=== PATIENT | female | born 1945 | race American Indian/Alaskan Native ===

== ENCOUNTER 2016-06-19 14:57 | Emergency (ER) | payer MEDICARE, BC ==
[2016-06-19 14:57] VITALS: BMI 30.9
--- NOTE | 2016-06-19 16:06 | ED PDOC ---
Arrival/HPI - General Chief Complaint: ENT Problem Time Seen by Provider: 06/19/16 15:11 Historian: Patient - History of Present Illness Narrative History of Present Illness (Text): 06/19/16 19:09 Patient with past medical history of hypertension, reports acute onset of R sided atraumatic nosebleed today, which subsided upon arrival to the emergency room, reports no active bleeding at this time. Otherwise: (-) hematuria, (-) GI bleeding, (-) other bleeding (-) prior history of posterior nosebleeds. Of note, patient states that she occasionally misses a dose of her blood pressure medication, however this week she's been compliant with it. Denies any headache , chest pain, palpitations or shortness of breath. PMD [place] Past Medical History - Provider Review Nursing Documentation Reviewed: Yes - Cardiac Hx Hypertension: Yes Hx Pacemaker: No - Neurological Hx Paralysis: No - Hematological/Oncological Hx Blood Transfusions: No Hx Blood Transfusion Reaction: No - Musculoskeletal/Rheumatological Hx Musculoskeletal Disorders: No (OSTEOPENIA) - Genitourinary/Gynecological Hx Genitourinary Disorders: No - Psychiatric Hx Emotional Abuse: No Hx Physical Abuse: No Hx Substance Use: No - Anesthesia Hx Anesthesia Reactions: No Hx Malignant Hyperthermia: No - Suicidal Assessment Feels Threatened In Home Enviroment: No Family/Social History - Physician Review Nursing Documentation Reviewed: Yes Family/Social History: No Known Family HX Smoking Status: Never Smoked Hx Alcohol Use: Yes (ON OCCASION) Hx Substance Use: No Allergies/Home Meds Allergies/Adverse Reactions: Allergies shellfish derived Adverse Reaction (Verified 06/18/15 08:12) VOMITING Home Medications: Home Meds Medication Instructions Recorded Confirmed Calcium Carbonate [Calcium] 500 mg PO BID 06/17/15 06/19/16 Cholecalciferol (Vitamin D3) 5,000 unit PO DAILY 06/17/15 06/19/16 [Vitamin D] Losartan/Hydrochlorothiazide 1 tab PO DAILY 06/17/15 06/18/15 [Hyzaar 25 mg-100 mg] Review of Systems - Review of Systems Constitutional: Normal. absent: Fatigue, Weight Change ENT: Normal, Epistaxis. absent: Hearing Changes, Tinnitus Respiratory: Normal. absent: SOB, Cough Cardiovascular: Normal. absent: Chest Pain, Palpitations Skin: Normal. absent: Rash, Skin Lesions Neurological: Normal. absent: Headache, Dizziness Physical Exam - Physical Exam Narrative Physical Exam (Text): 06/19/16 19:11 GENERAL APPEARANCE: Patient is awake, alert, oriented x 3, in no acute distress. No active bleeding noted. SKIN: Warm, dry; (-) petechiae, (-) ecchymosis. EYES: (-) conjunctival pallor, (-) icterus. ENMT: Nose: Speculum exam: (+) bleeding site identified to the R anterior nasal septum with no active bleeding. Pharynx: Clear. Airway patent: (-) stridor. NECK: (-) tenderness, (-) stiffness, (-) lymphadenopathy. CHEST AND RESPIRATORY: (-) rales, (-) rhonchi, (-) wheezes; breath sounds equal bilaterally. HEART AND CARDIOVASCULAR: (-) irregularity; (-) murmur, (-) gallop. Vital Signs Temp Pulse Resp BP Pulse Ox 06/19/16 16:10 66 16 99 06/19/16 16:06 98.0 F 66 16 146/80 98 06/19/16 15:17 97.9 F 68 18 99 06/19/16 14:59 97.9 F 68 18 167/80 H 99 Medical Decision Making ED Course and Treatment: 06/19/16 16:04 71 F with h/o HTN, presents with epistaxis to the R nare with no active bleeding at this time. Repeat P 66 BP 146/80. Patient instructed on the importance of being compliant with hypertension medication. Patient instructed on what to do if the bleeding recurs again. Patient advised to return to the emergency room at any time if symptoms persist. Based on history and exam, plan will be for outpatient follow-up with PMD. Patient states she fully agrees with and understands discharge instructions. States that she agrees with the plan and disposition. Verbalized and repeated discharge instructions and plan. I have given the patient opportunity to ask any additional questions. Follow up with primary care physician in 1-2 days without fail. Return to the emergency room at any time for any new or worsening symptoms. 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 Disposition/Present on Arrival - Present on Arrival Any Indicators Present on Arrival: No History of DVT/PE: No History of Uncontrolled Diabetes: No Urinary Catheter: No History of Decub. Ulcer: No History Surgical Site Infection Following: None - Disposition Have Diagnosis and Disposition been Completed?: Yes Diagnosis: Epistaxis Disposition: HOME/ ROUTINE Disposition Time: 15:50 Patient Plan: Discharge Condition: GOOD Discharge Instructions (ExitCare): Nosebleed (ED) Print Language: ARMENIAN Additional Instructions: Thank you for letting us take care of you today. You were treated for epistaxis. The emergency medical care you received today was directed at your acute symptoms. Return to the Emergency Department if your symptoms worsen, do not improve, or if you have any other problems. Please contact your doctor in 2 days for re-evaluation and follow up. Bring any paperwork you were given at discharge with you along with any medications you are taking to your follow up visit. Our treatment cannot replace ongoing medical care by a primary care provider (PCP) outside of the emergency department. Thank you for allowing the [facility] team to be part of your care today. Referrals: Abigail Hendricks MD [Primary Care Provider] - Follow up with primary
[2016-06-19 16:07] VITALS: BP 146/80; PULSE 66; RESP 16; TEMP 98
[2016-06-19 16:10] VITALS: O2SAT 99
== END 2016-06-19 16:10 | disposition home or self-care (01) ==
LOC: ED 14:57
DX: R04.0 Epistaxis (principal)

== ENCOUNTER 2016-06-19 21:52 | Emergency (ER) | payer MEDICARE, BC ==
--- NOTE | 2016-06-19 22:15 | ED PDOC ---
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 Patient stated she was seen in this ED earlier today for same epistaxis. Patient stated during last ED visit, epistaxis had improved. Patient stated she went home. She sneezed causing to get a nose bleed again. Patient is not taking blood thinners, or ASA. Patient denies trauma, dizziness , PEDROZA, diplopia, sick contact, or abnormal gait. Time/Duration: Prior to Arrival Context: Home Past Medical History - Provider Review Nursing Documentation Reviewed: Yes - Cardiac Hx Hypertension: Yes Hx Pacemaker: No - Neurological Hx Paralysis: No - Hematological/Oncological Hx Blood Transfusions: No Hx Blood Transfusion Reaction: No - Musculoskeletal/Rheumatological Hx Musculoskeletal Disorders: No (OSTEOPENIA) - Genitourinary/Gynecological Hx Genitourinary Disorders: No - Psychiatric Hx Emotional Abuse: No Hx Physical Abuse: No Hx Substance Use: No - Anesthesia Hx Anesthesia Reactions: No Hx Malignant Hyperthermia: No - Suicidal Assessment Feels Threatened In Home Enviroment: No Family/Social History - Physician Review Nursing Documentation Reviewed: Yes Family/Social History: No Known Family HX Smoking Status: Never Smoked Hx Alcohol Use: Yes (ON OCCASION) Hx Substance Use: No Allergies/Home Meds Allergies/Adverse Reactions: Allergies shellfish derived Adverse Reaction (Verified 06/18/15 08:12) VOMITING Home Medications: Home Meds Medication Instructions Recorded Confirmed Calcium Carbonate [Calcium] 500 mg PO BID 06/17/15 06/19/16 Cholecalciferol (Vitamin D3) 5,000 unit PO DAILY 06/17/15 06/19/16 [Vitamin D] Losartan/Hydrochlorothiazide 1 tab PO DAILY 06/17/15 06/18/15 [Hyzaar 25 mg-100 mg] Review of Systems - Review of Systems Constitutional: Normal. absent: Fatigue, Weight Change Eyes: Normal ENT: Epistaxis Respiratory: Normal Cardiovascular: Normal Gastrointestinal: Normal Genitourinary Female: Normal Musculoskeletal: Normal Skin: Normal Neurological: Normal Endocrine: Normal Hemo/Lymphatic: Normal Psychiatric: Normal Physical Exam Vital Signs Temp Pulse Resp BP Pulse Ox 06/20/16 00:44 16 98 06/20/16 00:43 62 16 153/86 H 99 06/19/16 22:55 98.0 F 62 18 99 Temperature: Afebrile Blood Pressure: Normal Pulse: Regular Respiratory Rate: Normal Appearance: Positive for: Well-Appearing, Non-Toxic, Comfortable Pain Distress: None Mental Status: Positive for: Alert and Oriented X 3 - Systems Exam Head: Present: Atraumatic, Normocephalic Pupils: Present: PERRL Extroacular Muscles: Present: EOMI Conjunctiva: Present: Normal Mouth: Present: Moist Mucous Membranes Pharnyx: Present: Normal. No: ERYTHEMA, EXUDATE, TONSILS ENLARGED Nose (External): Present: Atraumatic Nose (Internal): Present: No Active Bleeding, Other ((+) there is a trace of epistaxis on right anterior nostril. No active nose bleeding) Neck: Present: Normal Range of Motion Respiratory/Chest: Present: Clear to Auscultation, Good Air Exchange. No: Respiratory Distress, Accessory Muscle Use Cardiovascular: Present: Regular Rate and Rhythm, Normal S1, S2. No: Murmurs Abdomen: Present: Normal Bowel Sounds. No: Tenderness, Distention, Peritoneal Signs Back: Present: Normal Inspection Upper Extremity: Present: Normal Inspection. No: Cyanosis, Edema Lower Extremity: Present: Normal Inspection. No: Edema Neurological: Present: GCS=15, CN II-XII Intact, Speech Normal Skin: Present: Warm, Dry, Normal Color. No: Rashes Psychiatric: Present: Alert, Oriented x 3 Medical Decision Making ED Course and Treatment: 06/20/16 00:16 Re-evaluation. Patient feels better. Discussed results and plan with patient who expresses understanding. All questions answered and there is agreement with the plan to discharge home with instructions. Patient stable for discharge. Return if symptoms persist or worsen. Patient was monitor in the ED for return of epistaxis for over 2 hours Re-evaluation Time: 00:16 Reassessment Condition: Re-examined, Improved - Medication Orders Current Medication Orders: Discontinued Medications Silver Nitrate (Silver Nitrate Topical Stick) 1 swa TOP ONCE ONE Stop: 06/19/16 22:17 - Procedure PROCEDURE NOTE (Text): 06/20/16 00:17 Epistaxis has improved. Silver Nitrate topwas used to cauterized anterior right nostril point of bleeding. Patient tolerated procedure well. Disposition/Present on Arrival - Present on Arrival Any Indicators Present on Arrival: No History of DVT/PE: No History of Uncontrolled Diabetes: No Urinary Catheter: No History Surgical Site Infection Following: None - Disposition Have Diagnosis and Disposition been Completed?: Yes Diagnosis: Epistaxis Disposition: HOME/ ROUTINE Disposition Time: 00:18 Patient Plan: Discharge Condition: IMPROVED Discharge Instructions (ExitCare): Nosebleed (ED) Additional Instructions: Call ENT doctor for follow up visit and revaluation on Wednesday. Also call private doctor for blood pressure recheck. Make sure to take medication for blood pressure. Do not blow nose, open mouth when you sneeze, no not removed debris from nose. Return to emergency if nose bleed restart. Referrals: Abigail Hendricks MD [Primary Care Provider] - Follow up with primary Jayesh Ramos DO [Staff Provider] - Follow up with primary
[2016-06-19] MEDS ORDERED: Silver Nitrate Topical - Stick TOP ONE (22:16)
[2016-06-19 22:22] VITALS: BMI 29.6
[2016-06-19 22:55] VITALS: PULSE 62; TEMP 98
[2016-06-20 00:43] VITALS: BP 153/86; RESP 16
[2016-06-20 00:45] VITALS: O2SAT 98
== END 2016-06-20 00:45 | disposition home or self-care (01) ==
LOC: ED 21:52
DX: R04.0 Epistaxis (principal)

== ENCOUNTER 2017-04-22 21:32 | Emergency (ER) | payer MEDICARE, BC ==
[2017-04-22 21:32] VITALS: BMI 29.6
[2017-04-22 21:44] VITALS: RESP 18; TEMP 98.4
--- NOTE | 2017-04-22 22:09 | ED PDOC ---
Arrival/HPI - General Chief Complaint: ENT Problem Time Seen by Provider: 04/22/17 21:40 Historian: Patient - History of Present Illness Narrative History of Present Illness (Text): 04/22/17 22:05 A 72 year old female, whose past medical history includes hypertension, presents to the emergency department complaining of epistaxis since 7PM today. She states that she sneezed this evening and began to bleed from her right nostril which would not stop bleeding, which prompted her to come into the emergency department. The patient's epistaxis is currently improved. The patient also notes that at baseline blood pressure is high.The patient denies fevers, chills, headache, dizziness, chest pain, shortness of breath, dyspnea on exertion, cough, abdominal pain, nausea, vomiting, diarrhea, back pain, neck pain, urinary/bowel changes, or any other complaint. PMD: Dr. Jad Hendricks Time/Duration: Other (7 PM Today) Symptom Onset: Sudden Symptom Course: Unchanged Activities at Onset: Rest, Light Context: Home Past Medical History - Provider Review Nursing Documentation Reviewed: Yes - Cardiac Hx Hypertension: Yes Hx Pacemaker: No - Neurological Hx Paralysis: No - Hematological/Oncological Hx Blood Transfusions: No Hx Blood Transfusion Reaction: No - Musculoskeletal/Rheumatological Hx Musculoskeletal Disorders: No (OSTEOPENIA) - Genitourinary/Gynecological Hx Genitourinary Disorders: No - Psychiatric Hx Emotional Abuse: No Hx Physical Abuse: No Hx Substance Use: No - Anesthesia Hx Anesthesia Reactions: No Hx Malignant Hyperthermia: No - Suicidal Assessment Feels Threatened In Home Enviroment: No Family/Social History - Physician Review Nursing Documentation Reviewed: Yes Family/Social History: No Known Family HX Smoking Status: Never Smoked Hx Alcohol Use: Yes (ON OCCASION) Hx Substance Use: No Allergies/Home Meds Allergies/Adverse Reactions: Allergies shellfish derived Adverse Reaction (Verified 06/18/15 08:12) VOMITING Home Medications: Home Meds Medication Instructions Recorded Confirmed Calcium Carbonate [Calcium] 500 mg PO BID 06/17/15 06/19/16 Cholecalciferol (Vitamin D3) 5,000 unit PO DAILY 06/17/15 06/19/16 [Vitamin D] Losartan/Hydrochlorothiazide 1 tab PO DAILY 06/17/15 06/18/15 [Hyzaar 25 mg-100 mg] Review of Systems - Physician Review All systems were reviewed & negative as marked: Yes - Review of Systems Constitutional: absent: Fevers ENT: Epistaxis (Sudden onset at 7PM. Currently not bleeding. ) Respiratory: absent: SOB Cardiovascular: absent: Chest Pain, SELF Gastrointestinal: absent: Abdominal Pain, Stool Changes, Diarrhea, Nausea, Vomiting Genitourinary Female: absent: Urine Output Changes Musculoskeletal: absent: Back Pain, Neck Pain Neurological: absent: Headache, Dizziness Physical Exam Vital Signs Reviewed: Yes Vital Signs Temp Pulse Resp BP Pulse Ox 04/22/17 23:02 72 18 123/69 98 04/22/17 21:42 98.4 F 77 18 152/88 H 99 Temperature: Afebrile Blood Pressure: Hypertensive Pulse: Regular Respiratory Rate: Normal Appearance: Positive for: Well-Appearing, Non-Toxic, Comfortable Pain Distress: None Mental Status: Positive for: Alert and Oriented X 3 - Systems Exam Head: Present: Atraumatic, Normocephalic Pupils: Present: PERRL Extroacular Muscles: Present: EOMI Conjunctiva: Present: Normal Mouth: Present: Moist Mucous Membranes Nose (Internal): Present: Epistaxis (Blood in right nare. No longer bleeding. ) Neck: Present: Normal Range of Motion Respiratory/Chest: Present: Clear to Auscultation, Good Air Exchange. No: Respiratory Distress, Accessory Muscle Use Cardiovascular: Present: Regular Rate and Rhythm, Normal S1, S2. No: Murmurs Abdomen: Present: Normal Bowel Sounds. No: Tenderness, Distention, Peritoneal Signs Back: Present: Normal Inspection Upper Extremity: Present: Normal Inspection. No: Cyanosis, Edema Lower Extremity: Present: Normal Inspection. No: Edema Neurological: Present: GCS=15, CN II-XII Intact, Speech Normal Skin: Present: Warm, Dry, Normal Color. No: Rashes Psychiatric: Present: Alert, Oriented x 3, Normal Insight, Normal Concentration Medical Decision Making ED Course and Treatment: 04/22/17 22:11 Impression: A 72 year old female presents to the emergency department complaining of sudden onset epistaxis this evening from the right nostril. Plan: -- Labs -- Reassess and disposition Prior Visits: Notes and results from previous visits were reviewed. Patient was last seen in the emergency department on 06/19/16. The patient was seen in the emergency department for a complaint of right nostril epistaxis. The patient was discharged home. Progress Notes: EKG: Ordered, reviewed, and independently interpreted the EKG. Rate : 71 BPM Rhythm : NSR 04/22/17 23:25: Patient is not actively bleeding; no need to cauterize. All of patient's labs are normal. Patient's blood pressure is currently 120/63. - Lab Interpretations Lab Results: 04/22/17 22:30 04/22/17 22:30 Lab Results 04/22/17 22:30: Sodium 143, Potassium 3.8, Chloride 103, Carbon Dioxide 28, Anion Gap 16, BUN 24 H, Creatinine 1.1, Est GFR ( Amer) 59, Est GFR (Non- Af Amer) 49, Random Glucose 119 H, Calcium 9.6, Total Bilirubin 0.4, AST 21, ALT 23, Alkaline Phosphatase 85, Lactate Dehydrogenase 438, Total Creatine Kinase 57, Troponin I < 0.01, Total Protein 7.5, Albumin 3.8, Globulin 3.7, Albumin/Globulin Ratio 1.0 L 04/22/17 22:30: PT 12.0, INR 1.05 04/22/17 22:30: WBC 7.9, RBC 3.68, Hgb 11.4 L, Hct 33.8 L, MCV 91.8, MCH 31.0, MCHC 33.7, RDW 13.3, Plt Count 213, MPV 11.1 H, Gran % 61.7, Lymph % (Auto) 29.9 , [place] % (Auto) 6.6 H, Eos % (Auto) 1.5, Baso % (Auto) 0.3, Gran # 4.90, Lymph # (Auto) 2.4, [place] # (Auto) 0.5, Eos # (Auto) 0.1, Baso # (Auto) 0.02 I have reviewed the lab results: Yes - 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 - Scribe Statement The provider has reviewed the documentation as recorded by the Robbie Coles Provider Scribe Attestation: All medical record entries made by the Scribe were at my direction and personally dictated by me. I have reviewed the chart and agree that the record accurately reflects my personal performance of the history, physical exam, medical decision making, and the department course for this patient. I have also personally directed, reviewed, and agree with the discharge instructions and disposition. Disposition/Present on Arrival - Present on Arrival Any Indicators Present on Arrival: No History of DVT/PE: No History of Uncontrolled Diabetes: No Urinary Catheter: No History of Decub. Ulcer: No History Surgical Site Infection Following: None - Disposition Have Diagnosis and Disposition been Completed?: Yes Diagnosis: Epistaxis Disposition: HOME/ ROUTINE Disposition Time: 23:13 Patient Plan: Discharge Condition: GOOD Discharge Instructions (ExitCare): Nosebleed (ED) Additional Instructions: Mrs Allen- I am sorry this happened to you tonight. Nothing hot to eat or drink for the next few days. Vaporizer or Humidifier in your bedroom. Antibiotic ointment in the nose if you need to moisten it. Return to us if problems. See your doctor next week. [place]- Dr. Sandeep Gonzalez Referrals: Abigail Hendricks MD [Primary Care Provider] - Follow up with primary Forms: [employer] (Mongolian)
[2017-04-22 22:54] LABS: BASO # 0.02 K/mm3 (0.0-2.0); BASO % 0.3 % (0.0-3.0); EOS # 0.1 (0.0-0.7); EOS % 1.5 % (1.5-5.0); GRAN # 4.9 (1.4-6.5); GRAN % 61.7 % (50.0-68.0); HEMOGLOBIN 11.4 g/dL (12.0-16.0); LYMPH # 2.4 (1.2-3.4); LYMPH % 29.9 % (22.0-35.0); MEAN CELL VOLUME 91.8 fl (80.0-105.0); MEAN CORPUSCULAR HGB CONC 33.7 g/dl (31.0-37.0); MEAN PLATELET VOLUME 11.1 fl (7.0-11.0); MONO # 0.5 (0.1-0.6); MONO % 6.6 % (1.0-6.0); RBC 3.68 10^6/uL (3.5-6.1); RED CELL DISTRIBUTION WIDTH 13.3 % (11.5-14.5); WHITE BLOOD COUNT 7.9 10^3/ul (4.5-11.0)
[2017-04-22 22:57] LABS: ALBUMIN 3.8 g/dL (3.0-4.8); ALT/SGPT 23 U/L (7-56); AST/SGOT 21 U/L (14-36); BLOOD UREA NITROGEN 24 mg/dL (7-21); CALCIUM 9.6 mg/dL (8.4-10.5); GFR AFRICAN-AMERICAN 59; GFR NON-AFRICAN AMERICAN 49
[2017-04-22 22:58] LABS: INR 1.05 (0.93-1.08)
[2017-04-22 23:03] VITALS: BP 123/69; PULSE 72; O2SAT 98
[2017-04-22 23:09] LABS: TROPONIN I < 0.01 ng/mL
--- NOTE | 2017-04-26 16:06 | CARD ---
APPROVED REPORT EKG Measurement Heart [id number] CO [id number] <Conclusion> Normal sinus rhythm Normal ECG
== END 2017-04-22 23:28 | disposition home or self-care (01) ==
LOC: ED 21:32
DX: R04.0 Epistaxis (principal); I10 Essential (primary) hypertension

== ENCOUNTER 2017-05-09 20:21 | Observation (INO) | payer MEDICARE, BC ==
[2017-05-09 20:33] VITALS: BMI 31.5
--- NOTE | 2017-05-09 21:17 | ED PDOC ---
Arrival/HPI - General Chief Complaint: Dizziness/Lightheaded Time Seen by Provider: 05/09/17 20:29 Historian: Patient - History of Present Illness Narrative History of Present Illness (Text): 05/09/17 20:50 Raina Allen is a 72 year old female, whose past medical history includes hypertension, who presents to the Emergency department complaining of dizziness. Patient states tonight she experienced a couple of episodes of feeling dizzy and near-syncopal. Patient states she her blood pressure may have possibly been low at the time. Patient states this has never happened to her before. Patient states she currently feels fine. Patient denies any fever, chills, chest pain, shortness of breath, palpitations, nausea, vomiting, back pain, neck pain, headache, or any other complaints. Symptom Onset: Gradual Symptom Course: Unchanged Activities at Onset: Light Context: Home Past Medical History - Provider Review Nursing Documentation Reviewed: Yes - Infectious Disease Hx of Infectious Diseases: None - Cardiac Hx Hypertension: Yes Hx Pacemaker: No - Neurological Hx Paralysis: No - Hematological/Oncological Hx Blood Transfusions: No Hx Blood Transfusion Reaction: No - Musculoskeletal/Rheumatological Hx Musculoskeletal Disorders: No (OSTEOPENIA) - Genitourinary/Gynecological Hx Genitourinary Disorders: No - Psychiatric Hx Emotional Abuse: No Hx Physical Abuse: No Hx Substance Use: No - Surgical History Hx Hysterectomy: Yes - Anesthesia Hx Anesthesia: Yes Hx Anesthesia Reactions: No Hx Malignant Hyperthermia: No - Suicidal Assessment Feels Threatened In Home Enviroment: No Family/Social History - Physician Review Nursing Documentation Reviewed: Yes Family/Social History: Unknown Family HX Smoking Status: Never Smoked Hx Alcohol Use: Yes (ON OCCASION) Hx Substance Use: No Allergies/Home Meds Allergies/Adverse Reactions: Allergies shellfish derived Adverse Reaction (Verified 06/18/15 08:12) VOMITING Home Medications: Home Meds Medication Instructions Recorded Confirmed Calcium Carbonate [Calcium] 500 mg PO BID 06/17/15 06/19/16 Cholecalciferol (Vitamin D3) 5,000 unit PO DAILY 06/17/15 06/19/16 [Vitamin D] Losartan/Hydrochlorothiazide 1 tab PO DAILY 06/17/15 06/18/15 [Hyzaar 25 mg-100 mg] Review of Systems - Physician Review All systems were reviewed & negative as marked: Yes - Review of Systems Constitutional: Normal. absent: Fevers Eyes: Normal ENT: Normal Respiratory: Normal. absent: SOB, Cough Cardiovascular: Other (+near-syncopal). absent: Chest Pain, Palpitations Gastrointestinal: Normal. absent: Abdominal Pain, Diarrhea, Nausea, Vomiting Genitourinary Female: Normal. absent: Dysuria, Frequency, Hematuria, Urine Output Changes Musculoskeletal: Normal. absent: Back Pain, Neck Pain Skin: Normal. absent: Rash Neurological: Dizziness. absent: Headache, Focal Weakness, Gait Changes, Speech Changes Endocrine: Normal Hemo/Lymphatic: Normal Psychiatric: Normal Physical Exam Vital Signs Reviewed: Yes Vital Signs Temp Pulse Resp BP Pulse Ox 05/10/17 01:26 97.7 F 56 L 18 123/68 98 05/10/17 00:30 69 18 137/74 98 05/10/17 00:00 67 05/09/17 20:21 97.6 F 74 18 131/60 99 Temperature: Afebrile Blood Pressure: Normal Pulse: Regular Respiratory Rate: Normal Appearance: Positive for: Well-Appearing, Non-Toxic, Comfortable Pain Distress: None Mental Status: Positive for: Alert and Oriented X 3 - Systems Exam Head: Present: Atraumatic, Normocephalic Pupils: Present: PERRL Extroacular Muscles: Present: EOMI Conjunctiva: Present: Normal Mouth: Present: Moist Mucous Membranes Neck: Present: Normal Range of Motion. No: Meningeal Signs, MIDLINE TENDERNESS , Paraspinal Tenderness Respiratory/Chest: Present: Clear to Auscultation, Good Air Exchange. No: Respiratory Distress, Accessory Muscle Use Cardiovascular: Present: Regular Rate and Rhythm, Normal S1, S2. No: Murmurs Abdomen: Present: Normal Bowel Sounds. No: Tenderness, Distention, Peritoneal Signs Back: Present: Normal Inspection Upper Extremity: Present: Normal Inspection. No: Cyanosis, Edema Lower Extremity: Present: Normal Inspection. No: Edema Neurological: Present: GCS=15, CN II-XII Intact, Speech Normal, Motor Func Grossly Intact, Normal Sensory Function, Normal Cerebellar Funct, Gait Normal, Memory Normal Skin: Present: Warm, Dry, Normal Color. No: Rashes Psychiatric: Present: Alert, Oriented x 3, Normal Insight, Normal Concentration Medical Decision Making ED Course and Treatment: 05/09/17 20:50 Impression: 72 year old female complaining of dizziness and near-syncope tonight Plan: -- CT Head w/o contrast -- EKG -- CXR -- Labs, cardiac enzymes -- Reassess and disposition Prior Visits: Notes and results from previous visits were reviewed. On 04/22/2017, pt was seen in the Emergency department for epistaxis. Pt was d/ c home. Progress Notes: Reviewed EKG, NSR at 72 bpm. Non-specific ST/T wave changes. 05/09/17 22:29 Chest X-ray reviewed, shows no acute processes. 05/09/17 23:34 CT Head shows: BRAIN: Focal areas of low density in the left basal ganglia ND left frontal subcortical white matter, most compatible with old/chronic lacunar infarcts. Physiologic basal ganglia calcification. No other significant abnormality identified. No acute hemorrhage seen within the brain. No acute extra-axial fluid collections visualized. No evidence of significant mass effect within the brain. VENTRICLES: No evidence of significant hydrocephalus. BONES/JOINTS: No acute fractures or other acute bony abnormality noted. SOFT TISSUES: No acute abnormality of the visualized soft tissues is seen. SINUSES: Visualized paranasal sinuses appear clear, except for opacification of a left posterior ethmoid air cell. MASTOID AIR CELLS: Mastoid air cells appear clear. IMPRESSION: - No acute findings seen within the brain. - See above for remaining findings. 05/10/17 00:[address] Polk, who is aware and agrees with plan. Accepts pt in to her service. Pt will go to remote telemetry observation for near-syncope. - Lab Interpretations Lab Results: 05/09/17 21:10 05/09/17 21:10 Lab Results 05/09/17 21:10: WBC 5.8 D, RBC 3.45 L, Hgb 10.6 L, Hct 31.3 L, MCV 90.7, MCH 30.7, MCHC 33.9, RDW 13.3, Plt Count 233, MPV 11.8 H 05/09/17 21:10: Sodium 139, Potassium 3.7, Chloride 99, Carbon Dioxide 29, Anion Gap 15, BUN 26 H, Creatinine 1.4 H, Est GFR ( Amer) 45, Est GFR ( Non-Af Amer) 37, Random Glucose 117 H, Calcium 9.2, Total Bilirubin 0.4, AST 24 , ALT 21, Alkaline Phosphatase 81, Lactate Dehydrogenase 482, Total Creatine Kinase 70, Troponin I < 0.01, Total Protein 7.4, Albumin 3.9, Globulin 3.5, Albumin/Globulin Ratio 1.1 05/09/17 21:10: PT 11.9, INR 1.04, APTT 27.5 I have reviewed the lab results: Yes - RAD Interpretation Radiology Orders: 05/09/17 20:54 HEAD W/O CONTRAST [CT] Stat 05/09/17 20:55 CHEST ONE VIEW [RAD] Stat Senior Editor: ED Physician, Radiologist - EKG Interpretation Interpreted by ED Physician: Yes Type: 12 lead EKG - Medication Orders Current Medication Orders: Sodium Chloride (Sodium Chloride 0.9%) 1,000 mls @ 100 mls/hr IV .Q10H NARENDRA Last Admin: 05/10/17 02:34 Dose: 100 mls/hr eMAR Start Stop Document 05/10/17 02:34 MV (Rec: 05/10/17 02:34 MV [id number]) Intravenous Solution Start Date 05/10/17 Start Time 02:34 End Date 05/10/17 - Scribe Statement The provider has reviewed the documentation as recorded by the Scribjudah Ellington All medical record entries made by the Chengibjudah were at my direction and personally dictated by me. I have reviewed the chart and agree that the record accurately reflects my personal performance of the history, physical exam, medical decision making, and the department course for this patient. I have also personally directed, reviewed, and agree with the discharge instructions and disposition. Disposition/Present on Arrival - Present on Arrival Any Indicators Present on Arrival: No History of DVT/PE: No History of Uncontrolled Diabetes: No Urinary Catheter: No History of Decub. Ulcer: No History Surgical Site Infection Following: None - Disposition Have Diagnosis and Disposition been Completed?: Yes Diagnosis: Near syncope Disposition: HOSPITALIZED Disposition Time: 00:22 Patient Problems: Current Active Problems Problem Status Onset Syncope Acute Condition: STABLE
[2017-05-09 21:50] LABS: ALB/GLOB RATIO 1.1 (1.1-1.8); ALBUMIN 3.9 g/dL (3.0-4.8); ALT/SGPT 21 U/L (7-56); AST/SGOT 24 U/L (14-36); BLOOD UREA NITROGEN 26 mg/dL (7-21); CALCIUM 9.2 mg/dL (8.4-10.5); GFR AFRICAN-AMERICAN 45; GFR NON-AFRICAN AMERICAN 37
[2017-05-09 21:54] LABS: HEMOGLOBIN 10.6 g/dL (12.0-16.0); MEAN CELL VOLUME 90.7 fl (80.0-105.0); MEAN CORPUSCULAR HEMOGLOBIN 30.7 pg (25.0-35.0); MEAN CORPUSCULAR HGB CONC 33.9 g/dl (31.0-37.0); MEAN PLATELET VOLUME 11.8 fl (7.0-11.0); RBC 3.45 10^6/uL (3.5-6.1); RED CELL DISTRIBUTION WIDTH 13.3 % (11.5-14.5); WHITE BLOOD COUNT 5.8 10^3/ul (4.5-11.0)
[2017-05-09 22:01] LABS: INR 1.04 (0.93-1.08); PARTIAL THROMBOPLASTIN TIME 27.5 Seconds (25.1-36.5); PROTHROMBIN TIME 11.9 SECONDS (9.4-12.5)
[2017-05-09 22:02] LABS: TROPONIN I < 0.01 ng/mL
--- NOTE | 2017-05-09 23:09 | CT ---
EXAM: CT Head Without Intravenous Contrast EXAM DATE/TIME: 05/09/2017 8:54 PM CLINICAL HISTORY: 72 years old, female; Pain; Headache; Headache not specified; Additional info: Near syncope TECHNIQUE: Axial computed tomography images of the head/brain without intravenous contrast. All CT scans at this facility use one or more dose reduction techniques, viz.: automated exposure control; ma/kV adjustment per patient size (including targeted exams where dose is matched to indication; i.e. head); or iterative reconstruction technique. Coronal and sagittal reformatted images were created and reviewed. COMPARISON: No relevant prior studies available. FINDINGS: BRAIN: Focal areas of low density in the left basal ganglia ND left frontal subcortical white matter, most compatible with old/chronic lacunar infarcts. Physiologic basal ganglia calcification. No other significant abnormality identified. No acute hemorrhage seen within the brain. No acute extra-axial fluid collections visualized. No evidence of significant mass effect within the brain. VENTRICLES: No evidence of significant hydrocephalus. BONES/JOINTS: No acute fractures or other acute bony abnormality noted. SOFT TISSUES: No acute abnormality of the visualized soft tissues is seen. SINUSES: Visualized paranasal sinuses appear clear, except for opacification of a left posterior ethmoid air cell. MASTOID AIR CELLS: Mastoid air cells appear clear. IMPRESSION: - No acute findings seen within the brain. - See above for remaining findings.
[2017-05-09] MEDS ORDERED: Sodium Chloride 0.9% 1,000 ML IV SCH (23:45)
--- NOTE | 2017-05-10 08:56 | RAD ---
PROCEDURE: CHEST RADIOGRAPH, 1 VIEW HISTORY: dizzy COMPARISON: None available. FINDINGS: LUNGS: Hyperinflation of the lungs is noted. Questionable small infiltrate at the right lower lobe. PLEURA: No pneumothorax or pleural fluid seen. CARDIOVASCULAR: Normal. OSSEOUS STRUCTURES: No significant abnormalities. VISUALIZED UPPER ABDOMEN: Normal. OTHER FINDINGS: None. IMPRESSION: Questionable small infiltrate in the right lower lobe. Hyperinflation of the lungs suspicious for COPD.
[2017-05-10 10:06] LABS: IRON 77 ug/dL (45-180)
[2017-05-10 10:15] LABS: % IRON SATURATION 27 % (20-55); TOTAL IRON BINDING CAPACITY 284 ug/dL (265-497)
[2017-05-10] MEDS ORDERED: Nitroglycerin 2% Ointment Foilpak UD TOP PRN (11:40)
[2017-05-10] MEDS ORDERED: Sodium Chloride 0.9% 1,000 ML IV SCH (11:41)
--- NOTE | 2017-05-10 14:39 | CARD ---
APPROVED REPORT EXAM: Two-dimensional and M-mode echocardiogram with Doppler and color Doppler. INDICATION NEAR SYNCOPE 2D DIMENSIONS Left Atrium (2D)4.4 (1.6-4.0cm)IVSd1.1 (0.7-1.1cm) LVDd3.9 (3.9-5.9cm)PWd1.5 (0.7-1.1cm) LVDs2.5 (2.5-4.0cm)FS (%) 34.9 % LVEF (%)64.8 (>50%) M-Mode DIMENSIONS Aortic Root2.80 (2.2-3.7cm)Aortic Cusp Exc.1.60 (1.5-2.0cm) Aortic Valve AoV Peak Knxzxkmg183.0cm/Jalyn Peak GR.18mmHg Mitral Valve MV E Vvixrgez729.0cm/sMV A Kbopoasr848.0cm/sE/A ratio0.8 TDI E/Lateral E'0.0E/Medial E'0.0 Tricuspid Valve TR Peak Fweoxvwq987cr/sRAP [id number] Peak Gr.35mmHg [id number] LEFT VENTRICLE The left ventricle is normal size. There is moderate concentric left ventricular hypertrophy. Proximal septal thickening is noted. The left ventricular function is normal.EF-65% There is normal LV segmental wall motion. Transmitral Doppler flow pattern is Grade III-reversible restrictive diastolic dysfunction. No left ventricle thrombus noted on this study. There is no ventricular septal defect visualized. There is no left ventricular aneurysm. There is no mass noted in the left ventricle. RIGHT VENTRICLE The right ventricle is normal size. There is normal right ventricular wall thickness. The right ventricular systolic function is normal. ATRIA The left atrium is mildly dilated. The right atrium size is normal. The interatrial septum is intact with no evidence for an atrial septal defect. AORTIC VALVE The aortic valve is thickened but opens well. There is trace aortic regurgitation. There is no aortic valvular stenosis. There is no aortic valvular vegetation. MITRAL VALVE The mitral valve is thickened but opens well. Mitral annular calcification is moderate to severe. Mitral regurgitation is trace. There is no mitral valve stenosis. There is no evidence of mitral valve prolapse. TRICUSPID VALVE The tricuspid valve leaflets are thickened , but open well. There is mild to moderate tricuspid regurgitation.RVSP-45 mmof Hg There is no tricuspid valve stenosis. There is no tricuspid valve prolapse or vegetation. PULMONIC VALVE The pulmonic valve is borderline thickened. There is trace pulmonic valvular regurgitation. There is no pulmonic valvular stenosis. GREAT VESSELS The aortic root is normal in size. The ascending aorta is normal in size. The pulmonary artery is normal. The IVC is normal in size and collapses >50% with inspiration. PERICARDIAL EFFUSION There is no pleural effusion. There is no pericardial effusion. <Conclusion> The left ventricle is normal size. There is moderate concentric left ventricular hypertrophy. There is normal LV segmental wall motion. There is trace aortic regurgitation. Mitral regurgitation is trace. There is mild to moderate tricuspid regurgitation.RVSP-45 mmof Hg There is trace pulmonic valvular regurgitation. no vegetation or thrombus noted.
--- NOTE | 2017-05-10 15:34 | US ---
PROCEDURE: Ultrasound of the Kidneys HISTORY: azotemia COMPARISON: None available. TECHNIQUE: Sonogram of the kidneys. FINDINGS: RIGHT KIDNEY: Measures: 9.9 x 5.2 x 5.5 cm. Right kidney is echogenic. There are multiple cysts seen at the right kidney with the largest cyst seen at the midpole measures 2.7 centimeter. No stone, solid mass lesion or hydronephrosis visualized. LEFT KIDNEY: Measures: 10 x 4.6 x 5.8 cm. The left kidney is also echogenic. No stone, solid mass lesion or hydronephrosis visualized. There are also small cyst seen at the left kidney and the largest cyst measures 3.4 centimeter. OTHER FINDINGS: None. IMPRESSION: Echogenic kidneys suggestive of medical renal disease. Bilateral multiple cysts noted in the renal cortex. No evidence of hydronephrosis.
--- NOTE | 2017-05-10 15:36 | RAD ---
HISTORY: compare to previous r/o pneumonia COMPARISON: 05/09/2017 TECHNIQUE: Chest PA and lateral FINDINGS: LUNGS: No active pulmonary disease. PLEURA: No significant pleural effusion identified. No pneumothorax apparent. CARDIOVASCULAR: Normal. OSSEOUS STRUCTURES: No significant abnormalities. VISUALIZED UPPER ABDOMEN: Normal. OTHER FINDINGS: None. IMPRESSION: No active disease.
[2017-05-10 17:11] VITALS: TEMP 97.9
[2017-05-10 17:34] LABS: FOLATE 12.6 ng/mL
--- NOTE | 2017-05-10 17:49 | US ---
PROCEDURE: Bilateral carotid artery duplex ultrasound HISTORY: Carotid stenosis syncope PHYSICIAN(S): Santos Soliz MD. TECHNIQUE: Duplex sonography and color-flow Doppler were used to evaluate the carotid bifurcations and limited segments of the vertebral arteries bilaterally. FINDINGS: There is moderate smooth heterogeneous plaque noted at the carotid bifurcations bilaterally. The peak systolic velocity in the proximal right internal carotid artery is 120 cm/sec. This corresponds to a 40-59 percent proximal right ICA stenosis. Normal systolic velocities are noted in the proximal right external carotid artery. There is antegrade flow in the right vertebral artery. The origin of the left ICA is somewhat obscured by shadowing plaque. The peak systolic velocity in the proximal left internal carotid artery is 72 cm/sec. This corresponds to a 20 to 39% proximal left ICA stenosis. Normal systolic velocities are noted in the proximal left external carotid artery. There is antegrade flow in the dominant left vertebral artery. IMPRESSION: 1. 40-59 percent proximal right ICA stenosis 2. 20-39 percent proximal left ICA stenosis 3. Antegrade flow in both vertebral arteries.
[2017-05-10] MEDS ORDERED: DIFLUPREDNATE OU SCH (18:00)
--- NOTE | 2017-05-10 21:36 | CARD ---
APPROVED REPORT EKG Measurement Heart [id number] <Conclusion> Normal sinus rhythm Possible Left atrial enlargement Borderline ECG
--- NOTE | 2017-05-10 21:51 | HP ---
DATE OF EXAM: 05/10/2017 HISTORY OF PRESENT ILLNESS: This 72-year-old female presented to the [facility] Emergency Room for further evaluation of dizziness and near syncope. She states that she was in her kitchen cleaning last evening when she experienced dizziness and blurred vision. She laid down, felt better, got up, went back to the kitchen to resume her activities and had a recurrence of a dizzy feeling. She came to the [facility] ER where she was admitted for near syncope and was noted to be with renal insufficiency and anemia. The patient is currently on the cardiac martinez. On further questioning of this patient, she has a longstanding history of chronic hypertension for which she was prescribed losartan/hydrochlorothiazide 100/25 and states she has a history of vitamin D deficiency as well. The patient on further questioning states she is status post breast biopsy approximately 10 years ago, which was unremarkable for breast cancer and is status post a complete hysterectomy in her past. She also states she underwent colonoscopy with Dr. Armas approximately 3 years ago, which was unremarkable for any polyps, tumors or cancers. When I questioned the patient if she had any knowledge of renal insufficiency or anemia, she denied both of the above. SOCIAL HISTORY: She denied alcohol abuse, drug abuse or smoking history. FAMILY HISTORY: Noncontributory. REVIEW OF SYSTEMS: CONSTITUTIONAL: Denied fever or chills. EYE: Chronic glaucoma. EAR: Denied hearing loss. THROAT: Denied swallowing difficulty. NECK: Denied stiffness. CARDIAC: Denied any knowledge of atherosclerotic heart disease or myocardial infarction. She states she has never had a cardiac cath or any valvular disturbance that she knows of. PULMONARY: Denied hemoptysis. GI: As per HPI. : Denied any knowledge of renal insufficiency. ENDOCRINOLOGY: Denied any knowledge of diabetes mellitus. HEMATOLOGICAL: Denied knowledge of anemia. ENDOCRINE: Has history of hyperlipidemia. VASCULAR: No claudication. PSYCHOLOGICAL: Denied depression. NEUROLOGICAL: Denied stroke. PHYSICAL EXAMINATION: VITAL SIGNS: At present, she is in a normal sinus rhythm on the vmware architect with a temperature of 97.6, respirations 18, pulse 64 and blood pressure 123/68. Pulse ox 100%. HEENT: Head: Normocephalic, atraumatic. Eyes: No icterus. Ears: Clear. Throat: Noninjected. NECK: Supple. HEART: Regular, S1, S2. No pathological rubs, murmurs or gallops. LUNGS: Clear. ABDOMEN: Soft. EXTREMITIES: No edema. SKIN: Without rash. NEUROLOGICAL: Intact. PSYCHOLOGICAL: Alert. VASCULAR: Legs are warm to touch. LABORATORY DATA: White count 5800, hemoglobin 10.6, hematocrit 31.3, MCV 90.7, platelets 233,000. PT/INR 1.04, PTT 27.5. Sodium 139, potassium 3.7, chloride 99, bicarb 29, BUN 26, creatinine 1.4. Estimated GFR 45 mL per minute. Random blood sugar 117. Bilirubin 0.4, AST 24, ALT 21, alkaline phosphatase 81. Chest x-ray was reviewed. It showed lungs with questionable small infiltrate at the right base. No pneumothorax, no pleural effusions, questionable COPD. Head CT was reviewed. It showed evidence of old chronic lacunar infarcts, no acute hemorrhage was seen within the brain, no hydrocephalous was noted. EKG reportedly showed normal sinus rhythm with nonspecific ST-T wave changes. IMPRESSION: This is a 72-year-old female with obesity, chronic hypertension, now with renal insufficiency and anemia with chronic glaucoma. PLAN: As discussed with the patient and her grandson, Warren, at the bedside as well as her nurse, Zelda Davis, will be to continue this patient on the cardiac unit. She is ordered to have a iron, TIBC and ferritin level done as well as vitamin B12 and folic acid levels and a repeat basic metabolic panel and hemoglobin/hematocrit in the a.m. She is ordered to have 0.9 saline at 100 mL/hour and I have asked the nursing staff to monitor orthostatic blood pressures as outlined. She is continued on 2 L nasal O2 p.r.n. She will have an order for nitroglycerin 1 inch to chest wall q.4 hours if her systolic blood pressure should be greater than 160 or her diastolic blood pressure should be greater than 100. I have asked her family to bring in her glaucoma eyedrops from home and to use them as labeled and she will be scheduled to have a carotid ultrasound, a repeat PA and lateral chest x-ray, echocardiogram, and based on the results and her clinical progress, further workup will be entertained. Greater than 75 minutes was spent in the care management, review of x-rays, labs, medication and outlining of orders and discussion of this patient's case with herself, grandson, and nursing. All questions were answered. Rocio Polk MD [facility]
[2017-05-11 06:25] LABS: HEMOGLOBIN 10.2 g/dL (12.0-16.0)
[2017-05-11 07:41] LABS: CALCIUM 9.1 mg/dL (8.4-10.5)
[2017-05-11 08:35] VITALS: BP 148/87; RESP 20; O2SAT 98
[2017-05-11] MEDS ORDERED: Potassium Chloride 20 mEq ER Tab PO ONE (10:26)
[2017-05-11 15:30] VITALS: PULSE 86
--- NOTE | 2017-05-12 11:26 | DS ---
FINAL DIAGNOSES: Near syncope, resolved; chronic hypertension; anemia of chronic disease; chronic glaucoma; noncritical carotid artery stenosis. DISPOSITION: Home. Follow up in my office 05/17/2017. DISCHARGE MEDICATION: Will be enalapril 10 mg p.o. b.i.d. DISCHARGE SUMMARY: This 72-year-old female was admitted to with near syncope in the setting of dehydration and anemia. The patient was placed on the cardiac martinez. She was noted to be in normal sinus rhythm and because of normochromic normocytic anemia, had additional testings performed that was consistent with anemia of chronic disease and normal B12 and folic acid levels. Her BUN and creatinine at the time of admission were 26 and 1.4. She was given IV fluid hydration and at the time of discharge, BUN is 20 with creatinine of 1.1. The patient was ambulated on the cardiac martinez without incident. She denied any fever, chills, chest pain, or shortness of breath. At the time of discharge, her temperature is 97.9, respirations 20, pulse 62, and blood pressure 148/87 with a pulse ox of 98%. Labs showed white count 5800, hemoglobin 10.2, hematocrit 30.6, platelets 233,000. PT/INR 1.04, PTT 27.5. Sodium 142, K 3.5, chloride 106, bicarb 28, BUN 20, creatinine 1.1, random blood sugar 94. Bilirubin 0.4, AST 24, ALT 21, alkaline phosphatase 81. Iron 77, TIBC 284, percent saturation 27, ferritin 124, B12 of 723, folic acid 12.6. Chest x-ray PA and lateral was reviewed and showed no evidence of any pulmonary disease. There were no infiltrates, pneumonia, or pneumothorax. Carotid ultrasound was reviewed. It showed 40% to 59% proximal right internal carotid artery stenosis and 20% to 39% proximal left internal carotid artery stenosis. Echocardiography was reviewed. It showed normal left ventricle in size, moderate concentric left ventricular hypertrophy, normal left ventricular segmental wall motion, trace aortic regurgitation, trace mitral regurgitation, mild tricuspid regurgitation, and trace pulmonary valvular regurgitation. No vegetation or thrombi were noted. The patient was cleared for discharge to home and will be monitor my office as an outpatient. All of the above was reviewed in detail with the patient and she was advised to stop her previous losartan and hydrochlorothiazide and to start enalapril 10 mg p.o. b.i.d. with office appointment next 05/17/2017 as outlined. Greater than 35 minutes was spent in the discharge management of this patient today. Rocio Polk MD [facility]
== END 2017-05-11 15:32 | disposition home or self-care (01) ==
LOC: ED 20:21 → ERH 05-10 00:30 → 3RNO 05-10 02:00
PROVIDERS: ADMIT Internal Medicine; ATTEND Internal Medicine
DX: E86.0 Dehydration (principal); D63.8 Anemia in other chronic diseases classified elsewhere; I65.23 Occlusion and stenosis of bilateral carotid arteries; I08.3 Combined rheumatic disorders of mitral, aortic and tricuspid valves; E66.9 Obesity, unspecified; H40.9 Unspecified glaucoma; I11.9 Hypertensive heart disease without heart failure; I51.7 Cardiomegaly; M85.80 Other specified disorders of bone density and structure, unspecified site; N28.9 Disorder of kidney and ureter, unspecified; Z90.710 Acquired absence of both cervix and uterus; Z91.013 Allergy to seafood; R40.2412 Glasgow coma scale score 13-15, at arrival to emergency department; E55.9 Vitamin D deficiency, unspecified; E78.5 Hyperlipidemia, unspecified
CPT/HCPCS: 36415; 70450; 71045; 71046; 76770; 80048; 80053; 82550; 82607; 82728; 82746; 83540; 83550; 83615; 84484; 85014; 85018; 85027; 85610; 85730; 93005; 93306; 93880; 97116; 97161; 99285; G0378; G8978; G8979; G8980; J7040

== ENCOUNTER 2017-07-02 15:02 | Emergency (ER) | payer MEDICARE, BC ==
[2017-07-02 15:02] VITALS: BMI 31.5
[2017-07-02 15:13] VITALS: TEMP 98.6
--- NOTE | 2017-07-02 15:17 | ED PDOC ---
Arrival/HPI - General Chief Complaint: ENT Problem Time Seen by Provider: 07/02/17 15:16 Historian: Patient - History of Present Illness Narrative History of Present Illness (Text): 07/02/17 15:17 Raina Allen is a 72 year old female, whose past medical history includes hypertension, who presents to the Emergency department complaining of right nostril epistaxis x 4 hours. Patient noted she one episode of epistaxis yesterday which it had improved. Patient has come to this ED for same complain multiple time. Last ED visit was 2 weeks ago. Patient had labs test done. Patient stated he was seen by her ENT last week, who performed cauterization of right nostril. Patient stated epistaxis started after blowing her nose. Patient has been applying ointment on her nostrils, and she has a humidifier in her bedroom. Denies trauma. Patient does not use blood thinner. Time/Duration: Other (see hpi) Context: Home Past Medical History - Provider Review Nursing Documentation Reviewed: Yes - Infectious Disease Hx of Infectious Diseases: None - Cardiac Hx Cardiac Disorders: Yes Hx Hypertension: Yes - Pulmonary Hx Respiratory Disorders: No - Neurological Hx Neurological Disorder: No - HEENT Hx HEENT Disorder: Yes Hx Epistaxis: Yes (seasonal from dryness) - Renal Hx Renal Disorder: No - Endocrine/Metabolic Hx Endocrine Disorders: No - Hematological/Oncological Hx Blood Disorders: No - Integumentary Hx Dermatological Disorder: No - Musculoskeletal/Rheumatological Hx Musculoskeletal Disorders: Yes (OSTEOPENIA) - Gastrointestinal Hx Gastrointestinal Disorders: No - Genitourinary/Gynecological Hx Genitourinary Disorders: No - Psychiatric Hx Psychophysiologic Disorder: No Hx Physical Abuse: No Hx Substance Use: No - Surgical History Hx Hysterectomy: Yes - Anesthesia Hx Anesthesia: Yes Hx Anesthesia Reactions: No Hx Malignant Hyperthermia: No - Suicidal Assessment Feels Threatened In Home Enviroment: No Family/Social History - Physician Review Nursing Documentation Reviewed: Yes Family/Social History: Other (noncontributory) Smoking Status: Never Smoked Hx Alcohol Use: Yes (ON OCCASION) Hx Substance Use: No Allergies/Home Meds Allergies/Adverse Reactions: Allergies shellfish derived Adverse Reaction (Verified 07/02/17 15:08) VOMITING Home Medications: Home Meds Medication Instructions Recorded Confirmed Calcium Carbonate [Calcium] 500 mg PO BID 06/17/15 07/02/17 Cholecalciferol (Vitamin D3) 5,000 unit PO DAILY 06/17/15 07/02/17 [Vitamin D3] Review of Systems - Review of Systems Constitutional: Normal. absent: Fatigue, Weight Change, Fevers Eyes: Normal ENT: Epistaxis Respiratory: Normal Cardiovascular: Normal Gastrointestinal: Normal Genitourinary Female: Normal Musculoskeletal: Normal Skin: Normal Neurological: Normal Endocrine: Normal Hemo/Lymphatic: Normal Psychiatric: Normal Physical Exam Vital Signs Temp Pulse Resp BP Pulse Ox 07/02/17 18:56 72 18 152/70 H 99 07/02/17 16:42 65 18 158/79 H 98 07/02/17 15:09 98.6 F 69 16 162/89 H 99 Temperature: Afebrile Blood Pressure: Normal Pulse: Regular Respiratory Rate: Normal Appearance: Positive for: Well-Appearing, Non-Toxic, Comfortable Pain Distress: None Mental Status: Positive for: Alert and Oriented X 3 - Systems Exam Head: Present: Atraumatic, Normocephalic Pupils: Present: PERRL Extroacular Muscles: Present: EOMI Conjunctiva: Present: Normal Mouth: Present: Moist Mucous Membranes, Normal Lips, Normal Tounge. No: Drooling Pharnyx: Present: Other (no posterior pharynx bleeding). No: ERYTHEMA, EXUDATE , TONSILS ENLARGED Nose (External): Present: Atraumatic Nose (Internal): Present: Epistaxis ((+) trace oozing of right nostril epistaxis ) Neck: Present: Normal Range of Motion Respiratory/Chest: Present: Clear to Auscultation, Good Air Exchange. No: Respiratory Distress, Accessory Muscle Use, Wheezes, Retracting, Rhonchi Cardiovascular: Present: Regular Rate and Rhythm, Normal S1, S2. No: Murmurs Upper Extremity: Present: Normal Inspection, Normal ROM Lower Extremity: Present: Normal Inspection, Normal ROM Neurological: Present: GCS=15, CN II-XII Intact, Speech Normal Skin: Present: Warm, Dry, Normal Color. No: Rashes Psychiatric: Present: Alert, Oriented x 3, Normal Insight, Normal Concentration Medical Decision Making ED Course and Treatment: 07/02/17 18:08 Re-evaluation. Patient feels better. Discussed results and plan with patient who expresses understanding. All questions answered and there is agreement with the plan to discharge home with instructions. Patient stable for discharge. Return if symptoms persist or worsen. Epistaxis has improved after cauterized small area of nostril. Re-evaluation Time: 18:08 Reassessment Condition: Re-examined, Improved - Medication Orders Current Medication Orders: Discontinued Medications Silver Nitrate (Silver Nitrate Topical Stick) 4 swa TOP ONCE ONE Stop: 07/02/17 15:26 Last Admin: 07/02/17 17:06 Dose: 4 swa Disposition/Present on Arrival - Present on Arrival Any Indicators Present on Arrival: No History of DVT/PE: No History of Uncontrolled Diabetes: No Urinary Catheter: No History of Decub. Ulcer: No History Surgical Site Infection Following: None - Disposition Have Diagnosis and Disposition been Completed?: Yes Diagnosis: Epistaxis Disposition: HOME/ ROUTINE Disposition Time: 18:08 Patient Plan: Discharge Condition: GOOD Discharge Instructions (ExitCare): Nosebleeds (DC) Additional Instructions: Call private doctor for follow up visit in 1-2 days. Call private ENT doctor office tomorrow. Do not blow your nose. Use humidifier at bedtime. Apply Vaseline in both nostrils. Return to emergency if nosebleed returns Referrals: Abigail Hendricks MD [Primary Care Provider] - Follow up with primary Forms: [employer] (Uzbek)
[2017-07-02] MEDS ORDERED: Silver Nitrate Topical - Stick TOP ONE (15:25)
[2017-07-02 16:42] VITALS: RESP 18
[2017-07-02 18:57] VITALS: BP 152/70; PULSE 72; O2SAT 99
== END 2017-07-02 19:00 | disposition home or self-care (01) ==
LOC: ED 15:02
DX: R04.0 Epistaxis (principal)

== ENCOUNTER 2018-01-05 13:08 | Inpatient (IN) | payer MEDICARE, BC ==
[2018-01-05 13:11] VITALS: BMI 30.5
--- NOTE | 2018-01-05 14:05 | ED PDOC ---
Arrival/HPI - History of Present Illness Narrative History of Present Illness (Text): CC: dizziness This is a 72 year old female with PMH of HTN, hypercholesterolemia, constipation, left lower extremity stent placement in september 2017, who presents with dizziness and chills since 11 am this morning. Pt reports that she was her normal self until she started feeling cold, with chills and some shakes while sitting at work today. Pt states that she then began feeling dizziness since then, described as constant, without alleviating or exacerbating factors. Denies feeling like the room is spinning or she is spinning, weakness, fever, numbness or tingling, blurry vision, headache, double vision, changes in vision, muscle stiffening, loss of consciousness, chest pain, sob, sough, congestion, abdominal pain, v/d, urinary or bowel incontinence, hematochezia, melena, urinary complaints, body aches, leg pain, leg swelling, difficulty walking, or any other complaints. No recent travel, no long trips, no prolonged immobility. No recent changes in medications. No history of blood clots. PMD: Jad Hendricks at [facility] in [place] Admitted for evaluation of dizziness in april 2017. At that time, Head CT showed no acute findings; echo showed LVEF 64.8%, moderate LVH, trace pulmonic valvular regurgitation, trace AR, mild to moderate TR; Carotid US showed 40-59% stenosis of proximal Right ICA. 20-39% stenosis of proximal left ICA. Anterograd flow in bilateral vertebral arteries. PMH: HTN, hypercholesterolemia, CKD, constipation, history of irregularly shaped pupils PSH: left lower extremity stent placement in september [address] Eliseo Palomino Meds: see MAR Allx: shellfish derived Social hx: occasional etoh use, no history of smoking, no illicit drug use Time/Duration: 1-3 hours Symptom Onset: Sudden Symptom Course: Unchanged (dizziness) <Luigi Siddiqui - Last Filed: 01/05/18 18:11> - General Historian: Patient <Marcin Salyl - Last Filed: 01/05/18 20:38> - General Time Seen by Provider: 01/05/18 13:12 Past Medical History - Provider Review Nursing Documentation Reviewed: Yes - Infectious Disease Hx of Infectious Diseases: None - Cardiac Hx Hypertension: Yes Hx Pacemaker: No Hx Peripheral Edema: Yes (NOT AT PRESENT) - Pulmonary Hx Respiratory Disorders: No - Neurological Hx Neurological Disorder: No Hx Paralysis: No - HEENT Hx HEENT Disorder: Yes Hx Epistaxis: Yes (seasonal from dryness) - Renal Hx Renal Disorder: (RENAL INSUFFICIENCY) - Endocrine/Metabolic Hx Endocrine Disorders: No - Hematological/Oncological Hx Blood Disorders: No - Integumentary Hx Dermatological Disorder: No - Musculoskeletal/Rheumatological Hx Musculoskeletal Disorders: Yes (OSTEOPENIA) Hx Arthritis: Yes (in B/L hands) Hx Falls: No Other/Comment: HAMMERTOE - Gastrointestinal Hx Gastrointestinal Disorders: Yes (CONSTIPATION) - Genitourinary/Gynecological Hx Genitourinary Disorders: No - Psychiatric Hx Psychophysiologic Disorder: No Hx Emotional Abuse: No Hx Physical Abuse: No Hx Substance Use: No - Surgical History Hx Hysterectomy: Yes Other/Comment: Left breast Lumpectomy 1994 - Anesthesia Hx Anesthesia: Yes Hx Anesthesia Reactions: No Hx Malignant Hyperthermia: No - Suicidal Assessment Feels Threatened In Home Enviroment: No <Luigi Siddiqui - Last Filed: 01/05/18 18:11> Family/Social History Family/Social History: Unknown Family HX Smoking Status: Never Smoked Hx Alcohol Use: Yes (ON OCCASION) Hx Substance Use: No <Luigi Siddiqui - Last Filed: 01/05/18 18:11> - Physician Review Nursing Documentation Reviewed: Yes <Eduardo Sal - Last Filed: 01/05/18 20:38> Allergies/Home Meds <Luigi Siddiqui - Last Filed: 01/05/18 18:11> <Eduardo Sal - Last Filed: 01/05/18 20:38> Allergies/Adverse Reactions: Allergies shellfish derived Adverse Reaction (Verified 07/02/17 15:08) VOMITING Home Medications: Home Meds Medication Instructions Recorded Confirmed Calcium Carbonate [Calcium] 500 mg PO BID 06/17/15 01/05/18 Cholecalciferol (Vitamin D3) 2,000 unit PO DAILY 06/17/15 07/02/17 [Vitamin D3] Atorvastatin [Lipitor] 20 mg PO DAILY 01/05/18 01/05/18 Azilsartan Med/Chlorthalidone 1 tab PO DAILY 01/05/18 01/05/18 [Edarbyclor 40 mg-25 mg] Bisacodyl [Ducolax] 5 mg PO DAILY 01/05/18 01/05/18 Calcitriol 0.25 mcg PO QOD6 01/05/18 01/05/18 amLODIPine [Norvasc] 10 mg PO DAILY 01/05/18 01/05/18 Review of Systems - Review of Systems Systems not reviewed;Unavailable: Other (see HPI) Constitutional: Other (chills/rigors). absent: Fevers Eyes: absent: Vision Changes, Photophobia ENT: absent: Hearing Changes Respiratory: absent: SOB, Cough Cardiovascular: absent: Chest Pain, Palpitations, Calf Pain, Orthopnea Gastrointestinal: Constipation. absent: Abdominal Pain, Stool Changes, Diarrhea, Nausea, Vomiting Genitourinary Female: absent: Dysuria, Frequency Musculoskeletal: absent: Arthralgias, Neck Pain Skin: absent: Rash Neurological: Dizziness (see HPI). absent: Headache, Speech Changes, Facial Droop, Seizure Endocrine: absent: Diaphoresis Hemo/Lymphatic: absent: Adenopathy Psychiatric: Normal <Luigi Siddiqui - Last Filed: 01/05/18 18:11> Physical Exam Vital Signs Reviewed: Yes Vital Signs Temp Pulse Resp BP Pulse Ox 01/05/18 13:38 99.7 F H 97 H 18 133/65 97 Temperature: Afebrile Blood Pressure: Normal Pulse: Tachycardic Respiratory Rate: Normal Appearance: Positive for: Well-Appearing, Non-Toxic Pain Distress: None Mental Status: Positive for: Alert and Oriented X 3 - Systems Exam Head: Present: Atraumatic, Normocephalic Pupils: Present: PERRL (irregular pupils bilaterally at baseline as per pt) Extroacular Muscles: Present: EOMI Conjunctiva: Present: Injected Mouth: Present: Moist Mucous Membranes Nose (Internal): Present: Other ((-) sinus tenderness) Neck: Present: Normal Range of Motion. No: Lymphadenopathy, Bruit Respiratory/Chest: Present: Clear to Auscultation, Good Air Exchange. No: Respiratory Distress, Accessory Muscle Use, Wheezes, Decreased Breath Sounds, Rales, Retracting, Rhonchi Cardiovascular: Present: Murmurs (systolic ejection murmur 3/6 radiating to the carotids), Tachycardic, Other Abdomen: Present: Normal Bowel Sounds. No: Tenderness, Distention, Peritoneal Signs, Rebound, Guarding Back: Present: Normal Inspection Upper Extremity: Present: Normal Inspection, NORMAL PULSES. No: Cyanosis, Edema Lower Extremity: Present: Normal Inspection, NORMAL PULSES Neurological: Present: GCS=15, CN II-XII Intact, Speech Normal, Motor Func Grossly Intact Skin: Present: Warm, Dry Psychiatric: Present: Alert, Oriented x 3 <Luigi Siddiqui - Last Filed: 01/05/18 18:11> Vital Signs Temp Pulse Resp BP Pulse Ox 01/05/18 16:02 98.0 F 94 H 18 145/90 97 01/05/18 13:38 99.7 F H 97 H 18 133/65 97 <Eduardo Sal - Last Filed: 01/05/18 20:38> Medical Decision Making ED Course and Treatment: Pt presents with dizziness and chills, with nausea. Will get CBC, CMP, Mg, EKG, CXR. NS IVF 1L bolus, Meclizine 12.5 mg PO. 01/05/18 15:50 Dizziness feels "a little better" after the meclizine. No new complaints, no acute events. Re-evaluation Time: 15:49 Reassessment Condition: Re-examined, Improving,but remains with symptoms (dizziness has improved, but still there. no new complaints. No increased dizzi ness during orthostatic vital signs being taken.) - RAD Interpretation Narrative RAD Interpretations (Text): CXR: COMPARISON: 05/10/2017 FINDINGS: LUNGS: No active pulmonary disease. PLEURA: No significant pleural effusion identified, no pneumothorax apparent. CARDIOVASCULAR: No aortic atherosclerotic calcification present OSSEOUS STRUCTURES: No significant abnormalities. VISUALIZED UPPER ABDOMEN: Normal. OTHER FINDINGS: None. IMPRESSION: No active disease. 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 Interpreted by ED Physician: Yes <Luigi Siddiqui - Last Filed: 01/05/18 18:11> ED Course and Treatment: 01/05/18 Patient Seen with Resident: In agreement with resident note which contains more details about the patient. Patient seen and evaluated with resident. Came up with plan and treatment together. Impression: 72 year old female who presents with dizziness, chills, and nausea since 11am this morning. - Lab Interpretations Lab Results: 01/05/18 15:08 01/05/18 16:15 Lab Results 01/05/18 16:15: Sodium 139, Potassium 3.5 L, Chloride 105, Carbon Dioxide 26, Anion Gap 11, BUN 17, Creatinine 1.1, Est GFR ( Amer) 59, Est GFR (Non-Af Amer) 49, Random Glucose 104, Calcium 9.4, Magnesium 1.8, Total Bilirubin 0.9, AST 23, ALT 23, Alkaline Phosphatase 108, Troponin I Pending, Total Protein 8.1, Albumin 4.1, Globulin 4.0, Albumin/Globulin Ratio 1.0 L 01/05/18 15:08: WBC 13.1 H D, RBC 3.54, Hgb 10.9 L, Hct 32.2 L, MCV 91.0, MCH 30.8, MCHC 33.9, RDW 13.7, Plt Count 213, MPV 11.8 H, Gran % 90.8 H, Lymph % (Auto) 3.6 L, Benton % (Auto) 5.5, Eos % (Auto) 0.1 L, Baso % (Auto) 0.0, Gran # 11.93 H, Lymph # (Auto) 0.5 L, Benton # (Auto) 0.7 H, Eos # (Auto) 0.0, Baso # (Auto) 0.00, Neutrophils % (Manual) Pending, Lymphocytes % (Manual) Pending, Monocytes % (Manual) Pending 01/05/18 15:00: Influenza Typ A,B (EIA) Negative for flu a/b - RAD Interpretation Radiology Orders: 01/05/18 14:29 CHEST PORTABLE [RAD] Stat - EKG Interpretation Type: 12 lead EKG - Medication Orders Current Medication Orders: Discontinued Medications Sodium Chloride (Sodium Chloride 0.9%) 1,000 mls @ 999 mls/hr IV .Q1H1M STA Stop: 01/05/18 15:29 Last Admin: 01/05/18 14:46 Dose: 999 mls/hr eMAR Start Stop Document 01/05/18 14:46 [email or web address] (Rec: 01/05/18 14:46 [email or web address] [id number]) Intravenous Solution Start Date 01/05/18 Start Time 14:46 Meclizine HCl (Antivert) 12.5 mg PO STAT STA Stop: 01/05/18 14:32 Last Admin: 01/05/18 14:51 Dose: 12.5 mg <Eduardo Sal - Last Filed: 01/05/18 20:38> - Scribe Statement The provider has reviewed the documentation as recorded by the Scribe Thom Christelledaniel Provider Scribe Attestation: All medical record entries made by the Scribe were at my direction and pe rsonally dictated by me. I have reviewed the chart and agree that the record accurately reflects my personal performance of the history, physical exam, medical decision making, and the department course for this patient. I have also personally directed, reviewed, and agree with the discharge instructions and disposition. <Eduardo Sal - Last Filed: 01/05/18 20:38> Disposition/Present on Arrival - Present on Arrival Any Indicators Present on Arrival: No History of DVT/PE: No History of Uncontrolled Diabetes: No Urinary Catheter: No History of Decub. Ulcer: No History Surgical Site Infection Following: None - Disposition Have Diagnosis and Disposition been Completed?: Yes Disposition Time: 17:16 <Luigi Siddiqui - Last Filed: 01/05/18 18:11> <Eduardo Sal - Last Filed: 01/05/18 20:38> - Disposition Diagnosis: Dizziness, Murmur Patient Problems: Current Active Problems Problem Status Onset Dizziness Acute Murmur Acute Condition: GOOD
[2018-01-05] MEDS ORDERED: Sodium Chloride 0.9% 1,000 ML IV STA (14:29)
--- NOTE | 2018-01-05 15:21 | RAD ---
Date of service: 01/05/2018 HISTORY: r/o infilt COMPARISON: 05/10/2017 FINDINGS: LUNGS: No active pulmonary disease. PLEURA: No significant pleural effusion identified, no pneumothorax apparent. CARDIOVASCULAR: No aortic atherosclerotic calcification present OSSEOUS STRUCTURES: No significant abnormalities. VISUALIZED UPPER ABDOMEN: Normal. OTHER FINDINGS: None. IMPRESSION: No active disease.
[2018-01-05 15:31] LABS: EOS % 0.1 % (1.5-5.0)
[2018-01-05 16:34] LABS: ALBUMIN 4.1 g/dL (3.0-4.8); CALCIUM 9.4 mg/dL (8.4-10.5)
[2018-01-05 16:45] LABS: TROPONIN I 0.03 ng/mL
[2018-01-05 16:54] LABS: HEMOGLOBIN 11.5 g/dL (12.0-16.0); MEAN CELL VOLUME 90.4 fl (80.0-105.0); RBC 3.64 10^6/uL (3.5-6.1)
[2018-01-05 16:55] LABS: MEAN CORPUSCULAR HEMOGLOBIN 31.6 pg (25.0-35.0); RED CELL DISTRIBUTION WIDTH 11.4 % (11.5-14.5); WHITE BLOOD COUNT 14.2 10^3/ul (4.5-11.0)
[2018-01-05 16:56] LABS: GRAN % 90.4 % (50.0-68.0); PLATELET COUNT 218 10^3/uL (120.0-450.0)
[2018-01-05 16:57] LABS: BASO % 0.1 % (0.0-3.0); GRAN # 12.68 (1.4-6.5); LYMPH % 5.2 % (22.0-35.0); MONO % 5.3 % (1.0-6.0)
[2018-01-05 16:58] LABS: BASO # 0.02 K/mm3 (0.0-2.0); LYMPH # 0.7 (1.2-3.4); MONO # 0.8 (0.1-0.6)
[2018-01-05 16:59] LABS: MEAN PLATELET VOLUME 11.4 fl (7.0-11.0)
[2018-01-05 17:45] LABS: PH,URINE 7.5 (4.7-8.0); URINE BILIRUBIN NEGATIVE (NEGATIVE); URINE BLOOD TRACE-INTACT (NEGATIVE); URINE GLUCOSE (UA) NEGATIVE (NEGATIVE); URINE LEUKOCYTE ESTERASE NEGATIVE Leu/uL (NEGATIVE); URINE PROTEIN NEGATIVE mg/dL (<30 mg/dL); URINE UROBILINOGEN 0.2 E.U./dL (<1 E.U./dL)
[2018-01-05 18:04] LABS: URINE APPEARANCE CLEAR (CLEAR); URINE COLOR STRAW (YELLOW)
[2018-01-05 18:35] LABS: EOSINOPHIL 1 % (0.0-3.0); LYMPHOCYTE 4 % (22.0-35.0); MONOCYTE 2 % (1.0-6.0); NEUTROPHIL 93 % (50.0-70.0)
[2018-01-05 18:36] LABS: ANISOCYTOSIS SLIGHT; PLATELET ESTIMATE NORMAL (NORMAL)
[2018-01-05 18:38] LABS: URINE BACTERIA MANY (NEG); URINE EPITHELIAL CELLS 0 - 2 /hpf (0-5)
[2018-01-05] MEDS ORDERED: Potassium Chloride 20 mEq ER Tab PO STA (20:46)
[2018-01-05] MEDS: Sodium Chloride 0.45% 1,000 ML IV SCH (22:10)
[2018-01-05] MEDS ORDERED: Influenza Vaccine 60 mcg/0.5 mL SYR (4YR UP) IM ONE (22:21)
[2018-01-05] MEDS ORDERED: Pneumococcal 23-Valent Vaccine IM ONE (22:21)
[2018-01-06 06:34] LABS: ALBUMIN 3.2 g/dL (3.0-4.8); ALT/SGPT 22 U/L (7-56); AST/SGOT 24 U/L (14-36); BLOOD UREA NITROGEN 16 mg/dL (7-21); CALCIUM 8.7 mg/dL (8.4-10.5); GFR NON-AFRICAN AMERICAN 54
--- NOTE | 2018-01-06 06:53 | HP ---
HISTORY OF PRESENT ILLNESS: I was called down to the emergency room to see this nice lady. She is a 72-year-old female, who presents with dizziness and chills since about 11 o'clock this morning, started feeling cold, chills, shakes, dizziness again then came back and did not go away and she comes to the emergency room for evaluation. She is lying comfortable in the gurney. She is a 72-year-old female with past medical history of hypertension, high cholesterol, constipation, left lower extremity stent placement in 09/2017, who had some dizziness and chills, uncomfortable. She was admitted back in April 2017 for a similar situation. CT scan at that time showed no acute findings. Left ventricular ejection fraction was 64.8% at that time, mild LVH. She has hypertension, hypercholesterolemia, chronic kidney disease, constipation, history of irregularly shaped pupils, left lower extremity stent placement in 09/[address] Qing Palomino. ALLERGIES: SHELLFISH. SOCIAL HISTORY: She has occasional alcohol. No history of smoking. No illicit drugs. Never smoked. No substance abuse. On review of systems, she is dizzy. No acute vision or hearing issues. No sore throat. No chest pain or shortness of breath. No abdominal pain, nausea, vomiting, constipation. Extremities: She did move all four extremities. Skin: No apparent skin issues. She also had hysterectomy and left breast lumpectomy in 1994. FAMILY HISTORY: Unknown family history. MEDICATIONS: She is on calcium, vitamin D, Lipitor, Edarbyclor, Dulcolax, calcitriol, and Norvasc. REVIEW OF SYSTEMS: No vision changes. No photophobia. No hearing changes. No shortness of breath. No cough, no chest pain, no palpitations, no calf pain. There is some constipation, it is more chronic. No abdominal pain. No stool changes. No problems urinating. No arthralgias. No neck pain. No rashes. She is dizzy. No sweating. PHYSICAL EXAMINATION: VITAL SIGNS: She has a 99.7 temp, 97 pulse, 18 respiratory rate, 133/65 blood pressure, 97% O2 sat on room air. GENERAL: Well appearing, sort of nontoxic, alert and oriented x3. Family present with her. HEENT: Head is atraumatic, normocephalic. Irregular pupils bilaterally at the baseline. Extraocular muscles are intact. Throat is moist. NECK: Supple. No JVD. HEART: Regular rate with 3/6 systolic ejection murmur. LUNGS: Decreased breath sounds bilaterally. No wheezes, no rhonchi, no rales. ABDOMEN: Soft, nontender. Positive bowel sounds. No guarding, no rebound, no CVA tenderness. EXTREMITIES: No edema. NEUROLOGIC: GCS is 15. Cranial nerves II-XII grossly intact. Speech is normal. Motor function grossly intact. Alert and oriented x3. SKIN: Warm and dry. No apparent rashes or ulcers. LYMPHS: Thyroid midline. No palpable appreciable lymphadenopathy. LABORATORY DATA: She had multiple tests. She has 139 sodium, potassium is 3.5, I will replace the potassium. BUN is 17, creatinine 1.1. GFR is 49. Sugar is 104, calcium 9.4, magnesium 1.8, total bili is 0.9. AST is 23, ALT is 23, alk phos 108, total protein is 8.1. Troponin I is 0.03. Albumin is 4.1, globulin is 4. White count is 14.2, high; hemoglobin 11.5; hematocrit 32.9; platelets are 218. Urine shows many bacteria, she is having urinary tract infection. Negative for flu. She had a chest x-ray that showed no active disease, so she is in the hospital for dizziness and UTI. She had an elevated white count, a low sodium. She will be on IV fluids, Antivert, potassium replacement, Rocephin. She will have consult with Cardiology and Neurology. Physical therapy is ordered. Hopefully, the white count will improve, the potassium will improve and she will improve. She is on observation status with UTI, dizziness, low potassium and high white count. Suman Martinez DO
[2018-01-06 06:57] LABS: MEAN CELL VOLUME 90.3 fl (80.0-105.0); MEAN CORPUSCULAR HEMOGLOBIN 31.7 pg (25.0-35.0); MEAN CORPUSCULAR HGB CONC 35.1 g/dl (31.0-37.0); MEAN PLATELET VOLUME 11.3 fl (7.0-11.0); RED CELL DISTRIBUTION WIDTH 13.6 % (11.5-14.5); WHITE BLOOD COUNT 9.5 10^3/ul (4.5-11.0)
[2018-01-06 07:17] LABS: HEMOGLOBIN 9.5 g/dL (12.0-16.0)
[2018-01-06] MEDS ORDERED: Barium Sulfate Susp 2.1% w/v, 2.0% w/w 450 mL Bottle PO ONE (08:18)
[2018-01-06] MEDS: Cholecalciferol 1,000 INTLU TAB PO SCH (09:16)
--- NOTE | 2018-01-06 09:36 | PN ---
DATE: SUBJECTIVE: Raina Allen came in last night with couple of issues. She had a UTI, little bit dizzy, and low potassium. I had an observation level of care. She was on IV fluids. She was given meclozine for the dizziness. She was back on her blood medications and regular medications. I gave her Rocephin for an elevated white count of 14 for a possible UTI, which showed many bacteria. She had consults with Cardiology, Neurology, and I added Infectious Disease. I was hoping that the temperature would have subsided. She came in with 99.7, it then went to 100.1, now it is 99.8, still have low-grade temps. She is in bed, fair, not great, may be the dizziness has gone, she is not sure as she has not really walked yet. PHYSICAL EXAMINATION VITAL SIGNS: She has 99.8 temp, was 100.1 early this morning; 113/56 blood pressure; 62 pulse; 20 respiratory rate; and 94% sat on room air. HEENT: Head is atraumatic and normocephalic. HEART: Regular rate. LUNGS: Decreased breath sounds, but clear. ABDOMEN: Soft. EXTREMITIES: No edema. LABORATORY DATA: She has a white count that is now down to 9.5, which is better but she had a 14.2 white count last night, 9.5 hemoglobin, 27.1 hematocrit with 200 platelets. She has 138 sodium, potassium is better at 3.9. BUN 16, creatinine sugar is 98, calcium is 8.7. Total bili is 0.9, AST is 24, ALT is 22, alk phos 70. Troponin I was 0.03. Total protein 6.6. She had many bacteria in the urine, negative for flu. ASSESSMENT AND PLAN: So, I called in Neurology for the dizziness and Cardiology for the dizziness, also Infectious Disease for persistent temperature, low grade, although the white count did come down. If the neurologist and the russian history professor, Infectious Disease say I could change it to p.o. and physical therapy said she is walking well, I can discharge her later today. She is on observation status. Otherwise, i might watch her another 24 hours on observation to make sure the temperature comes down. I look forward to the consults calling me later to let me know what their plans are and she is here for dizziness, possible urinary tract infection, low potassium, and now a low-grade temperature. Suman Martinez DO MTDMone
[2018-01-06] MEDS ORDERED: Azithromycin 500MG/NS 250ml 500 MG/250 ML BAG IVPB SCH (10:00)
[2018-01-06] MEDS ORDERED: AZILSARTAN MED PO SCH (10:00)
[2018-01-06] MEDS ORDERED: CHLORTHALIDONE PO SCH (10:00)
[2018-01-06] MEDS ORDERED: [UNRECOGNIZED DRUG - OTHER] PO SCH (10:00)
[2018-01-06] MEDS ORDERED: cefTRIAXone 1 gm 1 GM/100 ML BAG IVPB SCH (10:00)
--- NOTE | 2018-01-06 10:35 | CARD ---
APPROVED REPORT Date of service: 01/05/2018 EKG Measurement Heart [id number] <Conclusion> Normal sinus rhythm Normal ECG No change
[2018-01-06 11:11] LABS: IRON 38 ug/dL (45-180)
[2018-01-06 11:19] LABS: URINE BILIRUBIN NEGATIVE (NEGATIVE); URINE BLOOD TRACE-INTACT (NEGATIVE); URINE GLUCOSE (UA) NEGATIVE (NEGATIVE); URINE LEUKOCYTE ESTERASE MODERATE Leu/uL (NEGATIVE); URINE PROTEIN NEGATIVE mg/dL (<30 mg/dL); URINE UROBILINOGEN 0.2 E.U./dL (<1 E.U./dL)
[2018-01-06 11:21] LABS: % IRON SATURATION 15 % (20-55); TOTAL IRON BINDING CAPACITY 252 ug/dL (265-497)
[2018-01-06 11:21] LABS: URINE APPEARANCE CLEAR (CLEAR); URINE COLOR YELLOW (YELLOW)
[2018-01-06 11:26] LABS: URINE BACTERIA MANY (NEG); URINE WBC 25 - 30 /hpf (0-6)
[2018-01-06 11:27] LABS: URINE AMORPHOUS SEDIMENT FEW
--- NOTE | 2018-01-06 14:31 | CT ---
Date of service: 01/06/2018 PROCEDURE: CT Abdomen and Pelvis without intravenous contrast HISTORY: sepsis COMPARISON: None. TECHNIQUE: Technique. Contrast dose: Radiation dose: Total exam DLP = 788.27 mGy-cm. This CT exam was performed using one or more of the following dose reduction techniques: Automated exposure control, adjustment of the mA and/or kV according to patient size, and/or use of iterative reconstruction technique. FINDINGS: LOWER THORAX: Small bibasilar infiltrates/subsegmental atelectasis. Small hiatal hernia. LIVER: Unremarkable. No gross lesion or ductal dilatation. GALLBLADDER AND BILE DUCTS: Unremarkable. PANCREAS: Unremarkable. No gross lesion or ductal dilatation. SPLEEN: Unremarkable. ADRENALS: Unremarkable. No mass. KIDNEYS AND URETERS: Multiple bilateral renal cysts. No hydronephrosis. No solid mass. VASCULATURE: Unremarkable. No aortic aneurysm. Tortuous aorta with calcifications. BOWEL: Unremarkable. No obstruction. No gross mural thickening. APPENDIX: Unremarkable. Normal appendix. PERITONEUM: Unremarkable. No free fluid. No free air. LYMPH NODES: Unremarkable. No enlarged lymph nodes. BLADDER: Unremarkable. REPRODUCTIVE: Unremarkable. BONES: No acute fracture. OTHER FINDINGS: None. IMPRESSION: Small bibasilar infiltrates/subsegmental atelectasis. Small hiatal hernia. Multiple bilateral renal cysts.
[2018-01-06 16:53] LABS: FOLATE 10.5 ng/mL
--- NOTE | 2018-01-06 20:11 | CON ---
DATE: 01/06/2018 CHIEF COMPLAINT: Fevers, chills and dizziness x1 to 2 days duration. HISTORY OF PRESENT ILLNESS: This is a 72-year-old female with history of hypertension, hyperlipidemia, kidney disease, peripheral artery disease, arthritis, history of hysterectomy and left leg arterial stent placement, who is allergic to shellfish was admitted now with a diagnosis of dizziness, history of hypertension and Infectious Disease consultation requested. The patient has been having fevers at home and had chills. There is mild shortness of breath, minimal cough, mid epigastric pain occasionally and no radiation, dull in nature. She denied any dysuria or frequency and she denied any back pain, any rash. No new joint pain. REVIEW OF SYSTEMS: A 12-point review systems is performed. PAST MEDICAL HISTORY: Significant for hypertension, hyperlipidemia, kidney disease and peripheral arterial disease. PAST SURGICAL HISTORY: Significant for hysterectomy, left leg stent. ALLERGIES: THE PATIENT IS ALLERGIC TO SHELLFISH. MEDICATIONS: At home reveals the patient is on amlodipine, enalapril, vitamins and Lipitor. PHYSICAL EXAMINATION: GENERAL: The patient is in bed in no acute distress; however, she appears washed out. VITAL SIGNS: Temperature of 100.1, heart rate of 97, respiratory rate of 20. HEENT: Unremarkable. NECK: Supple. LUNGS: Decreased breath sounds. HEART: Normal S1, S2. ABDOMEN: Soft and nontender. No rebound. No guarding. No masses. LABORATORY DATA: Reveals a white count of 14,200, hemoglobin 11, platelets of 215. Chemistries are noted. The patient's LFTs are normal. GFR is 59, creatinine of 1.1. Urinalysis is noted which is nitrites are positive, many bacteria but only 2 to 5 wbc's. Influenza is negative. The patient's chest x-ray is reported to be negative. ASSESSMENT AND PLAN: This is a 72-year-old female with hypertension, hyperlipidemia, kidney disease, peripheral arterial disease, systemic inflammatory response syndrome with leukocytosis, fever, tachycardia and must rule out community-acquired pneumonia versus gastrointestinal pathology versus urine as the source. We will order blood cultures, urine cultures, sputum cultures and MRSA screen. We will empirically start the patient on ceftriaxone and azithromycin. Pending procalcitonin. We will also order anemia as part of a workup of the anemia. Emergency room chart is reviewed. History and physical examinations reviewed. We will treat with ceftriaxone and azithromycin. Pending babin culture and serology workup and CAT scan of the abdomen and pelvis and we will make further recommendations. Tate Carlson MD
--- NOTE | 2018-01-06 20:43 | CON ---
DATE: 01/06/2018 CARDIOLOGY CONSULTATION HISTORY: The patient is a 72-year-old woman who presents with transient dizziness. PAST MEDICAL HISTORY: The patient's past medical history is notable for hypertension, hypercholesterolemia. She has documented pulmonary vascular disease with a stent placed in the past. In addition, she suffers from mild pulmonary hypertension documented by echocardiogram. She has LVH with good LV function. Her dizziness is now resolved. She denies chest pain. Denies previous heart disease. Denies previous myocardial infarction. SOCIAL HISTORY: The patient denies smoking. REVIEW OF SYSTEMS: A 14-point review of systems is reviewed in detail. No cardiac symptoms are noted. PHYSICAL EXAMINATION: VITAL SIGNS: Blood pressure 113/56, heart rate Is in the 60s, normal sinus rhythm. NECK: Negative JVD. LUNGS: Without rales. HEART: S1, S2. EXTREMITIES: Without edema. LABORATORY DATA: Hemoglobin is 9.5. Chemistries: BUN and creatinine are unremarkable. Her troponin is negative x1. EKG is unremarkable. Previous echocardiogram done earlier this year revealed LVH, good LV function. No LV outflow obstruction with mild pulmonary hypertension. IMPRESSION: 1. Transient dizziness, which is now resolved. 2. History of hypertension, which is well-controlled. 3. Hypercholesterolemia. 4. Pulmonary vascular disease. 5. Pulmonary hypertension. 6. Anemia. Given these findings, her dizziness, which is now resolved with no evidence for cardiac cause of her dizziness. A workup of her anemia would be appropriate. Santos Junior MD
--- NOTE | 2018-01-07 02:48 | CON ---
DATE: 01/06/2018 CHIEF COMPLAINT: Dizziness. HISTORY OF PRESENT ILLNESS: This is a 72-year-old -[place] woman with history of hypertension, coronary artery disease, hypercholesterolemia, history of PVD with left lower extremity stent placement in 09/2017, came for dizziness and transient lightheadedness, and felt to have chills and shakes. She was found to have urinary tract infection, has been placed on antibiotics. Her CAT scan has shown no acute intracranial abnormality. Currently, she is longer dizzy. No spinning sensation of the room. She is on Lipitor for dyslipidemia and Antivert for dizziness. No focal weakness of the extremities. FAMILY HISTORY: Noncontributory. ALLERGIES: SHELLFISH DERIVATIVES. MEDICATIONS: Reviewed by nurses' reconciliation sheet. REVIEW OF SYSTEMS: Fourteen-point review of systems is negative except as per the HPI. PHYSICAL EXAMINATION GENERAL: The patient is sitting up in bed, in no acute distress. VITAL SIGNS: Temperature of 98, pulse rate 74, blood pressure 125/60, respirations 18, oxygen saturation 98% by room air. HEENT: Atraumatic, normocephalic. PERRLA. Extraocular muscles intact. NECK: Supple. No JVD, no adenopathy noted. LUNGS: Clear to auscultation. No adventitious sounds. HEART: S1, S2. Normal rate and rhythm. No murmurs, rubs or gallops. ABDOMEN: Soft, nontender and nondistended. Bowel sounds are present. EXTREMITIES: No clubbing. No cyanosis. Peripheral pulses 2+ felt bilaterally. NEUROLOGIC: The patient is alert and oriented to person, place, month and year. Speech is fluent without any errors. Cranial nerves II through XII intact. Motor exam: Moves all extremities equally. Toes are downgoing bilaterally. Sensory exam: Light touch, pinprick, proprioception and vibration are intact. DTRs are 2+ throughout. Coordination: [id number] intact. No dysmetria noted. Gait is deferred for now. LABORATORY DATA: Sodium is 138, potassium 3.9, chloride 106, carbon dioxide 27, BUN 16, creatinine 1, and random glucose of 98. Urine; leukocyte esterase moderate and positive nitrites indicating UTI. IMPRESSION: Dizziness, it is more likely a near syncope from generalized weakness from underlying urinary tract infection. At this time, continue with management for urinary tract infection, aspirin 81, Lipitor 40 for stroke prevention. She is clinically stable for discharge. We will follow up as an outpatient for dizziness. Thank you for this consult. Vamsi Trujillo MD
[2018-01-07] MEDS: Sodium Chloride 0.45% 1,000 ML IV SCH (05:27)
[2018-01-07 06:52] LABS: HEMOGLOBIN 9.7 g/dL (12.0-16.0); MEAN CELL VOLUME 90.3 fl (80.0-105.0); MEAN CORPUSCULAR HEMOGLOBIN 30.5 pg (25.0-35.0); MEAN CORPUSCULAR HGB CONC 33.8 g/dl (31.0-37.0); MEAN PLATELET VOLUME 11.2 fl (7.0-11.0); RBC 3.18 10^6/uL (3.5-6.1); RED CELL DISTRIBUTION WIDTH 13.6 % (11.5-14.5); WHITE BLOOD COUNT 5.5 10^3/uL (4.5-11.0)
[2018-01-07 06:55] VITALS: PULSE 73; O2SAT 98
[2018-01-07 07:38] LABS: ALB/GLOB RATIO 0.9 (1.1-1.8); ALBUMIN 3.2 g/dL (3.0-4.8); CALCIUM 9.1 mg/dL (8.4-10.5)
--- NOTE | 2018-01-07 08:44 | PN ---
DATE: 01/07/2018 SUBJECTIVE: I saw her resting comfortably in bed. She slept fairly well. She is now on IV Rocephin and IV Zithromax plus IV fluids, meclizine, azilsartan, Lipitor, Norvasc, calcium, Rocaltrol, vitamin D. She is eating a little bit. She is feeling a little bit better overall. She is being treated with bilateral pneumonia. She came in for UTI and dizziness, low potassium. PHYSICAL EXAMINATION: VITAL SIGNS: She has a 98.6 temp, 68 pulse, 120/64 blood pressure, 20 respiratory rate, 98% O2 sat on room air. HEENT: Head is atraumatic, normocephalic. HEART: Regular rate. LUNGS: Decreased breath sounds, but clear. No wheezing, no rhonchi, no rales. ABDOMEN: Soft, nontender. Positive bowel sounds. No guarding. No rebound. She is moving her bowels. EXTREMITIES: No edema. I would like to get her out of bed to chair everyday. LABORATORY DATA: She has a white count of 5.5, 9.7 hemoglobin, 28.7 hematocrit with 192 platelets. 138 sodium, potassium 3.6, BUN 15, creatinine 1.1, GFR is 49, sugar is 98, calcium is 9.1, iron was low at 38. She is going to get some iron. Saturation is low at 15, total bili is 0.6, AST is 53, ALT is 32, alk phos 97, total protein 6.8. Folate was 10.5. Prolactin was 10.2. Vitamin B12 was 47. Urine has still many bacteria. Negative for influenza. ASSESSMENT AND PLAN: She is being seen by Neurology, Cardiology and Infectious Disease. She is on IV antibiotics. I am going to get the okay from Infectious Disease. I will be discharging her. She is still on IV antibiotics right now. Raina Allen who I do think is improving despite her urinary tract infection, dizziness, low potassium, low iron, bilateral infiltrates. Suman Martinez DO
[2018-01-07] MEDS: Cholecalciferol 1,000 INTLU TAB PO SCH (09:59)
[2018-01-07] MEDS ORDERED: levoFLOXacin 500 MG TAB PO SCH (10:00)
[2018-01-07] MEDS ORDERED: cefTRIAXone 1 gm 1 GM/100 ML BAG IVPB SCH (10:15)
--- NOTE | 2018-01-07 11:11 | PN ---
DATE: 01/07/2018 SUBJECTIVE: Patient is seen earlier today in room 261, bed 1. Patient seen earlier. No fevers, no chills. No nausea, no vomiting, no chest pain. Patient is in bed in no acute distress. Nontoxic. No fevers. No chills. No nausea. PHYSICAL EXAMINATION: VITAL SIGNS: Temperature is 98, blood pressure is 120/70, respirations 16. HEENT: Unremarkable. NECK: Supple. LUNGS: Decreased breath sounds. HEART: Normal S1 and S2. ABDOMEN: Soft. LABORATORY DATA: Reveals the patient's white count is down to 5.5 and hemoglobin of 9. Chemistries are noted and serologies reviewed. Microbiology reveals a gram negative vicente in the urine. Blood cultures are negative and patient had a CAT scan of the abdomen and pelvis which is noted. The urinalysis reveals 25 to 30 wbc's. Procalcitonin is pending. Patient is on ceftriaxone and Zithromax. ASSESSMENT AND PLAN: A 72-year-old female with hypertension, hyperlipidemia, kidney disease, peripheral arterial disease, systemic inflammatory response and leukocytosis and with sepsis with gram negative vicente in the urine as the source, questionable community-acquired pneumonia and we will check on procalcitonin, discontinue Zithromax, use p.o. Levaquin and continue ceftriaxone IV pending identification and sensitivity of the gram negative vicente in the urine. We will follow with you. Tate Carlson MD
--- NOTE | 2018-01-07 12:13 | PN ---
DATE: 01/07/2018 CARDIOLOGY FOLLOWUP SUBJECTIVE: The patient's symptoms are resolved. PHYSICAL EXAMINATION: VITAL SIGNS: Blood pressure is 128/70, the heart rate is in the 70s. NECK: Negative JVD. LUNGS: Without rales. HEART: Reveals S1, S2. EXTREMITIES: Without edema. LABORATORY DATA: Hemoglobin is 9.7. Chemistries: BUN and creatinine are unremarkable. The iron is low with a low TIBC. IMPRESSION: 1. Transient dizziness, which is now resolved. 2. Microcytic anemia. 3. History of hypertension. 4. History of pulmonary hypertension. 5. Hypercholesterolemia. PLAN: Given these findings, the patient's cardiac status is stable. We will discontinue telemetry. 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 Santos Junior MD
[2018-01-07 13:50] VITALS: BP 125/90; RESP 18; TEMP 98.5
== END 2018-01-07 15:01 | disposition home or self-care (01) | DRG 689 ==
LOC: ED 13:08 → ERH 17:16 → 2RNO 22:34 → OBSVTOIN 01-06 23:11
PROVIDERS: ADMIT Family Medicine; ATTEND Family Medicine
DX: N39.0 Urinary tract infection, site not specified (principal); J18.9 Pneumonia, unspecified organism; E87.6 Hypokalemia; R42 Dizziness and giddiness; I12.9 Hypertensive chronic kidney disease with stage 1 through stage 4 chronic kidney disease, or unspecified chronic kidney disease; N18.9 Chronic kidney disease, unspecified; D72.829 Elevated white blood cell count, unspecified; I73.9 Peripheral vascular disease, unspecified; D50.9 Iron deficiency anemia, unspecified; E78.00 Pure hypercholesterolemia, unspecified; E78.5 Hyperlipidemia, unspecified; I25.10 Atherosclerotic heart disease of native coronary artery without angina pectoris; I27.20 Pulmonary hypertension, unspecified; M85.80 Other specified disorders of bone density and structure, unspecified site; Z90.710 Acquired absence of both cervix and uterus; Z91.013 Allergy to seafood; B96.1 Klebsiella pneumoniae [K. pneumoniae] as the cause of diseases classified elsewhere

== ENCOUNTER 2018-03-21 08:02 | Day surgery (SDC) | payer MEDICARE, BC ==
[2018-03-21] MEDS ORDERED: Sodium Chloride 0.9% 1,000 ML IV SCH (09:30)
[2018-03-21] MEDS ORDERED: Propofol 10 mg/ml Inj (20 ML) ONE ×2 (10:22→10:23)
[2018-03-21] MEDS ORDERED: ePHEDrine 50 mg/ml Inj ONE (11:19)
[2018-03-21 12:33] VITALS: RESP 18
--- NOTE | 2018-03-21 13:26 | CARD ---
APPROVED REPORT Date of service: 03/21/2018 EKG Measurement Heart [id number] <Conclusion> Normal sinus rhythm Prolonged QT Abnormal ECG
--- NOTE | 2018-03-21 16:03 | CON ---
DATE: 03/21/2018 CARDIOLOGY CONSULTATION HISTORY: The patient is a 72-year-old woman, who developed bradycardia after endoscopy. This was resolved with atropine. PAST MEDICAL HISTORY: The patient's past medical history includes hypertension, hypercholesterolemia, and documented pulmonary hypertension. Her last echocardiogram performed several months ago showed LVH with good LV function. There is pulmonary hypertension. Currently, the heart rate is in the 60s, normal sinus rhythm, the patient is resting with no issues. REVIEW OF SYSTEMS: Unremarkable. PHYSICAL EXAMINATION: VITAL SIGNS: Blood pressure is 132/72, the heart rate is in the 60s. NECK: Negative JVD. LUNGS: Without rales. HEART: S1, S2. EXTREMITIES: Without edema. EKG shows no acute changes. Laboratories are not available. IMPRESSION: 1. Transient bradycardia after gastrointestinal workup consistent with a transient vasovagal episode. 2. No hemodynamic sequelae from her bradycardia. 3. Hypertension. 4. Left ventricular hypertrophy. 5. Hypercholesterolemia. 6. Pulmonary hypertension. PLAN: Given these findings, there are no cardiac issues related to her bradycardia. No further need for cardiac workup. 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 Santos Junior MD
[2018-03-21 17:26] VITALS: BP 126/67; PULSE 65; TEMP 97.5; O2SAT 100
== END 2018-03-21 15:00 | disposition home or self-care (01) ==
LOC: ENDO 08:02
PROVIDERS: ATTEND Internal Medicine Gastroenterology
DX: D17.5 Benign lipomatous neoplasm of intra-abdominal organs (principal); K21.0 Gastro-esophageal reflux disease with esophagitis; K31.9 Disease of stomach and duodenum, unspecified; K29.50 Unspecified chronic gastritis without bleeding; K59.00 Constipation, unspecified; K64.8 Other hemorrhoids; R19.4 Change in bowel habit; I97.89 Other postprocedural complications and disorders of the circulatory system, not elsewhere classified; Y84.8 Other medical procedures as the cause of abnormal reaction of the patient, or of later complication, without mention of misadventure at the time of the procedure; I10 Essential (primary) hypertension; E78.00 Pure hypercholesterolemia, unspecified; I27.20 Pulmonary hypertension, unspecified
CPT/HCPCS: 43239; 45378; 88305; 88312; 88342; 93005; J2001; J2704; J7030; J7040